=== PATIENT | female | born 1935 | race Caucasian/White ===

== ENCOUNTER 2022-02-03 09:22 | Emergency (ER) | payer MEDICARE, MEDICAID, SELFPAY ==
[2022-02-03 09:35] VITALS: BP 132/66; BP 157/57; PULSE 57; PULSE 62; RESP 18; TEMP 36.4; O2SAT 95; O2SAT 97; BMI 25.7
[2022-02-03 10:57] VITALS: BP 139/52; PULSE 53; RESP 12; O2SAT 95
--- NOTE | 2022-02-03 11:14 | PC.NURSE ---
RN to RN with yael at [facility]. Pt has been ambulatory, urinating w/o diff on toilet. no complaints. No prolapse noted by providers when patient spine in bed. [facility] aware that ED is unable to fit pt with new pessarie.
--- NOTE | 2022-02-03 11:27 | ED.FEMALEGU ---
HPI - Female Genitourinary General Chief complaint: Urogenital-Female Stated complaint: VAGINAL PROLAPSE PER SNF Time Seen by Provider: 02/03/22 11:01 Source: EMS Mode of arrival: EMS Limitations: altered mental status History of Present Illness HPI Narrative: 86-year-old female coming from a group home with a past medical history of dementia here with reports of vaginal prolapse noted by nursing staff today. Per report from nursing the patient has a history of this and had a pessary in place. History of present illness, review of systems is limited due to baseline mental status Related Data Allergies Allergy/AdvReac Type Severity Reaction Status Date / Time celecoxib [From Celebrex] Allergy Unknown Verified 02/03/22 09:34 ciprofloxacin [From Cipro] Allergy Unknown Verified 02/03/22 09:34 rosuvastatin [From Crestor] Allergy Unknown Verified 02/03/22 09:34 Review of Systems Review of Systems: Yes Unobtainable due to mental status Neurologic: Reports confusion Psychiatric: Psychiatric: Reports confusion PMFSH Past Medical History Attestation statement: The following information was validated with the patient. Source: old records reviewed and nursing notes reviewed Social History Social History Alcohol intake: never Patient Tobacco Use Status: Never used Tobacco Use of substances other than those prescribed or required for medical reasons: No Physical Exam Vital Signs: Vital Signs: Last Vital Signs Temp 97.6 F 02/03/22 09:35 Pulse 53 02/03/22 10:57 Resp 12 02/03/22 10:57 BP 139/52 L 02/03/22 10:57 Pulse Ox 95 02/03/22 10:57 BMI result Body Mass Index 25.7 Const: General: comfortable, alert and confusion Orientation/consciousness: confusion Limitations: no limitations HEENT: Head: Yes normal to inspection Ears: hearing grossly normal bilaterally General nose exam: Normal external nose present Face and sinus: Yes normal facial exam Mouth: Normal oral and palatal mucosa present Throat: Yes posterior oropharynx normal Eyes: General: appearance normal, both eyes and all related structures Pupils: Equal, round and reactive pupils present Neck: Neck: Yes normal visual inspection Chest: Chest palpation & inspection: normal inspection of the chest Resp: Effort & Inspection: normal respiratory effort Auscultation: clear to auscultation bilaterally Cardio: Rate: regular rate Rhythm: regular rhythm Peripheral pulses: Peripheral pulses 2+ throughout GI: Inspection: Yes normal to inspection Palpation (GI): Soft to palpation and nontender Auscultation: normal bowel sounds : External Female Exam: normal external appearance and normal appearance of the urethra Back/Spine/Pelvis: Thoracic/Lumbar Spine: thoracic and lumbar spine normal to inspection Skin: General skin exam: no rashes or lesions noted Neuro: General: moves all extremities, normal sensation to monofilament and confusion Cranial nerves: Yes Equal, round and reactive pupils present Extrem: General: Yes normal to inspection Course Course Course Narrative: 86-year-old female here with reports of vaginal prolapse noted at the group home. Patient has underlying history of dementia as on unable to obtain any history of present illness, ROS and limited PE. Per report of Nursing the patient had a pessary in place. On exam the patient has an external normal appearance of the vagina. Nursing tells me with standing they noticed ?vaginal prolapse. Pessary not with patient. Patient has no complaints, feels well, no pain, voiding normally. Will discharge back to [facility] and consult for urogyn can be done outpatient. MDM - Female Genitourinary Medical Records Attestation: I reviewed the patient's medical records. Lab Data Attestation: I reviewed the patient's lab results. Discharge Plan Discharge Clinical Impression: Vaginal wall prolapse
== END 2022-02-03 13:45 | disposition skilled nursing facility (03) ==
PROVIDERS: Emergency Provider Emergency Medicine Emergency Medical Services; PCP Family Medicine
DX: N81.10 Cystocele, unspecified (principal); F03.90 Unspecified dementia, unspecified severity, without behavioral disturbance, psychotic disturbance, mood disturbance, and anxiety
CPT/HCPCS: 99282; 99284

== ENCOUNTER 2022-02-05 19:18 | Emergency (ER) | payer MEDICARE, MEDICAID, SELFPAY ==
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
[2022-02-05 19:27] VITALS: BP 122/62; BP 165/71; PULSE 64; PULSE 70; RESP 18; TEMP 36.8; O2SAT 95; O2SAT 97
--- NOTE | 2022-02-05 19:46 | PC.NURSE ---
Made two attempts to call nursing facility to determine PT's tetanus vaccination status with no success. No one answered the phone at the facility on first or second floor.
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
[2022-02-05] MEDS: Diphth,Pertus(ACell),Tet Adult 0.5 ML SYRINGE IM (21:28)
[2022-02-05] MEDS: Lidocaine HCl 1 % MPF 5 ML VIAL SUBCUT (21:29)
[2022-02-05 21:57] VITALS: BP 151/55; PULSE 72; RESP 16; TEMP 36.8; O2SAT 98
[2022-02-05] MEDS: Amoxicillin/Potassium Clav 875 MG TABLET PO (22:36)
--- NOTE | 2022-02-06 00:34 | PC.NURSE ---
EMS at bedside for trransport back to SNF.
== END 2022-02-06 00:36 | disposition skilled nursing facility (03) ==
PROVIDERS: Emergency Provider Internal Medicine
DX: S01.512A Laceration without foreign body of oral cavity, initial encounter (principal); S01.81XA Laceration without foreign body of other part of head, initial encounter; Y04.2XXA Assault by strike against or bumped into by another person, initial encounter; Y93.89 Activity, other specified; Y92.129 Unspecified place in nursing home as the place of occurrence of the external cause; Y99.9 Unspecified external cause status
CPT/HCPCS: 12052; 70450; 70486; 72125; 90471; 90715; 99283; 99284

== ENCOUNTER 2022-03-21 14:13 | Outpatient (REF) | payer MEDICARE, MEDICAID, SELFPAY ==
--- NOTE | ~2022-03-21 | US_ITS ---
EXAMINATION: US THYROID CLINICAL INFORMATION: Multinodular goiter. COMPARISON: None TECHNIQUE: Linear transducer grayscale and color Doppler examination with attention to the region of the thyroid. FINDINGS: SIZE: Measurements of the thyroid lobes and nodules are given in sagittal, anteroposterior and transverse dimensions respectively. Right Thyroid Lobe: 4.5 x 1.8 x 1.6 cm, volume 6.8 mL. Parenchyma: The gland echotexture is heterogeneous. Thyroid vascularity is normal. Left Thyroid Lobe: 5.6 x 3.4 x 2.2 cm, volume 21.9 mL. Parenchyma: The gland echotexture is heterogeneous. Thyroid vascularity is normal. Isthmus: 0.9 cm in maximum AP dimension. Estimated total number of nodules greater than or equal to 1 cm: 4. [employer] nodules are described as follows: 1. Location: Lower left isthmus. Size: 1.9 x 0.8 x 1.5 cm, volume 1.1 mL. Nodule characteristics: Composition: Solid (2). Echogenicity: Hypoechoic (2). Shape: Not taller than wide (0). Margins: Ill-defined (0). Echogenic Foci: None (0). ACR TI-RADS total points: 4 ACR TI-RADS category: 4 2. Location: Left lower isthmus. Size: 1.1 x 1.3 x 1.8 cm, volume 1.31 mL. Nodule characteristics: Composition: Solid (2). Echogenicity: Isoechoic (1). Shape: Not taller than wide (0). Margins: Smooth (0). Echogenic Foci: None (0). ACR TI-RADS total points: 3 ACR TI-RADS category: 3 3. Location: Left lower pole. Size: 3.6 x 2.5 x 2.3 cm, volume 11.0 mL. Nodule characteristics: Composition: Solid (2). Echogenicity: Hypoechoic (2). Shape: Not taller than wide (0). Margins: Extrathyroidal extension (3). Echogenic Foci: None (0). ACR TI-RADS total points: 7 ACR TI-RADS category: 5 4. Location: Right lower pole. Size: 1.7 x 1.6 x 0.9 cm, volume 1.25 mL. Nodule characteristics: Composition: Solid (2). Echogenicity: Isoechoic (1). Shape: Taller than wide (3). Margins: Irregular (2). Echogenic Foci: None (0). ACR TI-RADS total points: 8 ACR TI-RADS category: 5 NODES: No lymphadenopathy is seen in the tissue surrounding the thyroid gland. US/US thyroid IMPRESSION: Heterogeneous slightly enlarged thyroid lobes. The left lobe is significantly enlarged. There is a heterogeneous nodule suspicious in the lower pole left lobe and lower pole right lobe. By ACR TI-RADS reference these nodules should be biopsied. ACR TI-RADS RECOMMENDATION REFERENCE: Ultrasound-guided fine-needle aspiration, followup ultrasound, no further follow up. * TR1 (0 point) and TR 2 (2 points): No FNA or follow up * TR3 (3 points): FNA if more than or equal to 2.5 cm in maximum dimension, followup ultrasound in 1, 3 and 5 years if 1.5 to 2.4 cm in maximum dimension. * TR4 (4-6 points): FNA if more than or equal to 1.5 cm in maximum dimension, followup ultrasound in 1, 2, 3 and 5 years if 1 to 1.4 cm in maximum dimension. * TR5 (more than or equal to 7 points): FNA if more than or equal to 1 cm in maximum dimension, followup ultrasound every year for 5 years if 0.5 to 0.9 cm in maximum dimension. * TR3, TR4 or TR5 nodules that are below the size threshold for follow up receive no follow up.
== END 2022-03-21 14:14 | disposition home or self-care (01) ==
LOC: HO.US 14:13
PROVIDERS: Visit Provider Family Medicine
DX: E04.9 Nontoxic goiter, unspecified (principal)
CPT/HCPCS: 76536

== ENCOUNTER 2022-04-14 10:01 | Emergency (ER) | payer MEDICARE, MEDICAID, SELFPAY ==
--- NOTE | ~2022-04-14 | CT_ITS ---
EXAMINATION: CT CHEST WITHOUT CONTRAST CLINICAL INFORMATION: Fall with left-sided pain COMPARISON: None TECHNIQUE: Multidetector volumetric CT imaging of the chest was done. Axial MIP volume rendering provided. Sagittal and coronal reformatted images were obtained. This CT examination was performed using dose optimization techniques as appropriate, variously including the following: *Automated exposure control *Adjustment of mA and/or kV according to patient size (this includes techniques or standardized protocols for targeted exams where dose is matched to indication/reason for exam; i.e. extremities or head) *Use of iterative reconstruction technique DLP: 214 mGy-cm FINDINGS: LUNGS: Bibasilar atelectasis is seen. There is marked bronchiectasis present in the right upper lobe medially with crowding of dilated thick-walled bronchi. There are scattered areas of tree-in-bud formation indicative of inflammatory/airway disease. No suspicious focal masses are seen scattered calcified granulomas are seen bilaterally.. Some areas of bronchial plugging are seen (for example right middle lobe 4:247). MEDIASTINUM: Heart size normal. Main pulmonary artery is dilated at 4.2 cm suggesting pulmonary hypertension. Calcific atherosclerotic changes present in the aorta and coronary arteries. No mediastinal or hilar lymphadenopathy is detected PLEURA: There is no pleural effusion. No pleural mass or thickening. AXILLA: No lymphadenopathy. UPPER ABDOMEN: Unremarkable. OSSEOUS STRUCTURES: Mild degenerative changes are present spine most marked at L1-L2. There is a hemangioma present on the left side of the T7 vertebral body as well as on the right side of the T10 vertebral body. CT/CT chest wo con IMPRESSION: * No evidence of a traumatic injury. * Some chronic findings are present in the lungs including atelectasis, tree-in-bud formation and bronchiectasis. * Main pulmonary artery is dilated suggesting pulmonary hypertension Fleischner guidelines were followed.
--- NOTE | ~2022-04-14 | CT_ITS ---
EXAMINATION: CT HEAD WITHOUT CONTRAST CLINICAL INFORMATION: Fall. Dizziness. COMPARISON: Previous head CT January 2022 TECHNIQUE: Contiguous axial imaging was performed from the skull base to vertex without intravenous administration of contrast. This CT examination was performed using dose optimization techniques as appropriate, variously including the following: *Automated exposure control *Adjustment of mA and/or kV according to patient size (this includes techniques or standardized protocols for targeted exams where dose is matched to indication/reason for exam; i.e. extremities or head) *Use of iterative reconstruction technique DLP: 595 mGy-cm FINDINGS: There is no evidence of an extra-axial collection. There is no evidence of intra-axial or extra-axial hemorrhage. The ventricles and extra-axial CSF spaces are prominent suggestive of generalized atrophy. There is nonspecific periventricular white matter disease. 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 There is an old infarct or encephalomalacia in the left temporal lobe that appears unchanged. No mass, mass effect or acute infarct is seen. No skull fracture is seen. There is soft tissue swelling over the left frontal bone laterally left orbit. CT/CT head/brain wo con IMPRESSION: No acute intracranial findings. Soft tissue swelling over the left frontal bone lateral orbit suggestive of hematoma. Otherwise no change from January 2022 exam.
--- NOTE | ~2022-04-14 | XR_ITS ---
EXAMINATION: XR KNEE, LEFT CLINICAL INFORMATION: Pain after fall COMPARISON: None TECHNIQUE: Four views of the left knee. FINDINGS: Degenerative changes are seen with narrowing of the medial compartment and lateral femoral condyle and tibial plateau osteophytes. No chondrocalcinosis. No significant joint effusion. No acute fractures are seen. XR/XR knee LT 4V IMPRESSION: Negative changes anomaly involving the medial compartment. No evidence of an acute injury.
--- NOTE | ~2022-04-14 | CT_ITS ---
EXAMINATION: CT FACIAL BONES WITHOUT CONTRAST CLINICAL INFORMATION: Fall. Pain. COMPARISON: Previous CT January 2022. TECHNIQUE: Axial images through the facial bones without contrast. This CT examination was performed using dose optimization techniques as appropriate, variously including the following: *Automated exposure control *Adjustment of mA and/or kV according to patient size (this includes techniques or standardized protocols for targeted exams where dose is matched to indication/reason for exam; i.e. extremities or head) *Use of iterative reconstruction technique DLP: 272 mGy-cm FINDINGS: There is a comminuted nondisplaced fracture of the ramus and angle of the left mandible. There is mild widening or subluxation of the left temporomandibular joint that appears unchanged. There is overlying soft tissue swelling. There is a nondisplaced fracture through the ramus of the right mandible. This appears unchanged from recent exam January 2022. The right temporomandibular joint is normal. No other fracture or dislocation is seen. There is periodontal disease that appears unchanged. There is soft tissue swelling over the left lateral orbit and frontal bone. The orbits are normal appearing. The mastoid air cells, middle ears are clear. There are degenerative changes at the left temporomandibular joint. There is membranous soft tissue thickening seen in the right maxillary sinus. Paranasal sinuses are otherwise clear. CT/CT facial bones wo con IMPRESSION: Bilateral mandible fractures and mild widening subluxation of the left temporomandibular joint unchanged from January 2022 exam. New high attenuation soft tissue swelling over the lateral left orbit and frontal bone suggestive of hematoma.
--- NOTE | ~2022-04-14 | CT_ITS ---
EXAMINATION: CT CERVICAL SPINE WITHOUT CONTRAST CLINICAL INFORMATION: Fall. Pain. COMPARISON: Previous CT January 2022 TECHNIQUE: Axial images through the cervical spine without contrast. Sagittal and coronal reconstructions on the technologist workstation were performed. This CT examination was performed using dose optimization techniques as appropriate, variously including the following: *Automated exposure control *Adjustment of mA and/or kV according to patient size (this includes techniques or standardized protocols for targeted exams where dose is matched to indication/reason for exam; i.e. extremities or head) *Use of iterative reconstruction technique DLP: 272 mGy-cm FINDINGS: There is mild 2 mm anterior subluxation of C3 with respect to C4. Bone alignment is otherwise normal. No fracture or dislocation is seen. There is multilevel degenerative spondylosis and degenerative disc disease from C4-C5 to C6-C7. There is bilateral multilevel facet arthritis. There are degenerative changes at the C1 dens articulation. There are multiple small lucencies in the cervical spine, question related to osteopenia. Prevertebral soft tissues are normal. There may be a left thyroid nodule. Visualized lung apices are clear. CT/CT cervical spine wo con IMPRESSION: Degenerative changes. No fracture or dislocation seen. Fleischner guidelines were followed.
[2022-04-14 10:18] VITALS: BP 126/54; PULSE 55; RESP 18; TEMP 36.9; O2SAT 93
[2022-04-14 10:22] VITALS: BP 124/58; BP 126/54; PULSE 53; PULSE 62; RESP 22; TEMP 36.9; O2SAT 94; O2SAT 96; BMI 22.0
--- NOTE | 2022-04-14 10:41 | ECG_ITS ---
Test Reason : fall Blood Pressure : / mmHG Vent. Rate : 053 BPM Atrial Rate : 053 BPM P-R Int : 158 ms QRS Dur : 092 ms QT Int : 442 ms P-R-T Axes : 067 062 064 degrees QTc Int : 414 ms Sinus bradycardia Otherwise normal ECG No previous ECGs available Referred By: Rhonda Moore Electronically Signed By:Stephen Hubbard
--- NOTE | 2022-04-14 10:57 | ED.GENADULT ---
HPI - General Adult General Chief complaint: General Medical Stated complaint: MECH FALL DAYS AGO,HIT HEAD,+[facility]INNERS FROM SNF Time Seen by Provider: 04/14/22 10:56 Source: patient and family (Daughter) Mode of arrival: EMS History of Present Illness HPI narrative: 87-year-old female who is brought in by EMS from [facility] with baseline dementia with complaints of 2-3 days of dizziness/headache. As per the daughter patient fell approximately 2 weeks ago and is currently on anticoagulation and then 2-3 days ago she sustained of no other fall although the patient states that she fell this morning. Patient does report that the left side of her head hurts as well as her left knee but otherwise denies any pain in her chest abdomen or pelvis. Related Data Previous Rx's Medication Instructions Recorded amoxicillin 875 mg-potassium 1 tab PO BID 7 days #14 tabs 02/05/22 clavulanate 125 mg tablet chlorhexidine gluconate 4 % 1 appl topical QID #473 mL 02/05/22 topical liquid Allergies Allergy/AdvReac Type Severity Reaction Status Date / Time celecoxib [From Celebrex] Allergy Unknown Verified 02/03/22 09:34 ciprofloxacin [From Cipro] Allergy Unknown Verified 02/03/22 09:34 rosuvastatin [From Crestor] Allergy Unknown Verified 02/03/22 09:34 Review of Systems Review of Systems: Pertinent positives and negatives as stated in HPI 10 point review of systems is otherwise negative. PMFSH Past Medical History Source: nursing notes reviewed Social History Social History Alcohol intake: never Patient Tobacco Use Status: Never used Tobacco Use of substances other than those prescribed or required for medical reasons: No Advance Directives: Yes Advance Directives on File: Yes Advance Directives Date on File: 02/03/22 Physical Exam ED Vital Signs: Vital Signs - 24 hr 04/14/22 10:18 04/14/22 10:22 04/14/22 14:38 Temperature 98.4 F 98.4 F 99.0 F Pulse Rate 55 53 51 Respiratory Rate 18 22 H 14 Blood Pressure 126/54 L 126/54 L 132/52 L Pulse Oximetry 93 94 94 Oxygen Delivery Method Room Air Room Air Room Air BMI result Body Mass Index 22.0 VITAL SIGNS: Reviewed. GENERAL: Well developed, well nourished, in no acute distress. HEAD: Normocephalic/contusion/hematoma to left temp oral, evidence old ecchymosis around left orbit as well as right orbit EYES: PERRLA, EOMI EARS: Ext canals without abnormality, TMs non-bulging NOSE: Nares patent bilateral, no deformity NECK: No midline cervical spine tenderness, no step-offs noted OROPHARYNX: no oral lesions noted, posterior pharynx clear LUNGS: Normal breath sounds. No adventitious sounds or accessory muscle use. SpO2<93>;CHEST WALL: No deformity, no crepitus, no pain on palpation CARDIOVASCULAR: Regular rate and rhythm without noted murmurs, no JVD or lower extremity edema. ABDOMEN: Soft, non-tender, non-distended with bowel sounds. PELVIS: Stable, nontender MUSCULOSKELETAL: No tenderness, deformities, or effusions noted on gross inspection; LEFT KNEE: Pain and crepitus noted although no swelling. EXTREMITIES: No cyanosis, clubbing or edema. SKIN: Inspection of the skin reveals no rashes, ecchymosis as described above NEUROLOGIC: Alert and oriented x 2. Strength and sensation to light touch were grossly intact x 4. Course Course Course Narrative: 87-year-old female with history and clinical presentation consistent with multiple falls and noted mold ecchymosis secondary to these. Will obtain imaging as well as lab work to ensure no evidence of infection, anemia, arrhythmia is underlying the falls and also rule out the possibility intracranial bleeding as she is on anticoagulation. Review of all investigations without significant changes. Patient has already been evaluated by [facility] as per the daughter and on review of all CT imaging there are no acute findings and in fact the following finding is made note of once again. Bilateral mandible fractures and mild widening subluxation of the left temporomandibular joint unchanged from January 2022 exam. New high attenuation soft tissue swelling over the lateral left orbit and frontal bone suggestive of hematoma. Patient is otherwise hemodynamically stable for discharge to home and should follow up with primary care doctor. Medical Decision Making Lab Data Result diagrams: 04/14/22 11:11 04/14/22 11:11 Labs: Lab Results 04/14/22 04/14/22 04/14/22 Range/Units 11:11 11:11 11:11 WBC 9.3 (4.8-10.8) X10*3/uL RBC 3.47 L (4.20-5.50) X10*6/uL Hgb 10.3 L (12.0-16.0) g/dl Hct 34.2 L (37.0-47.0) % MCV 98.6 H (80.0-98.0) fL MCH 29.7 (27.0-33.0) pg MCHC 30.1 L (31.0-35.0) g/dl RDW 14.4 (11.0-16.0) % Plt Count 357 (160-400) X10*3/uL MPV 8.7 L (9.4-12.3) fL Immature Gran % (Auto) 0.3 (0.0-0.4) % Neut % (Auto) 81.4 H (45-73) % Lymph % (Auto) 9.9 L (20-40) % [place] % (Auto) 7.6 (2-11) % Eos % (Auto) 0.5 (0-4) % Baso % (Auto) 0.3 (0-2) % Lymph # (Auto) 0.9 L (1.2-4.9) X10*3/uL [place] # (Auto) 0.7 (0.1-1.2) X10*3/uL Eos # (Auto) 0.1 (0.0-0.4) X10*3/uL Baso # (Auto) 0.0 (0.0-0.2) X10*3/uL Abs Immat Gran (auto) 0.03 (0.00-0.03) X10*3/uL Absolute Neuts (auto) 7.6 (2.0-8.3) x10*3/uL Absolute Nucleated RBC 0.000 (0.0-0.012) X10*3/uL Nucleated RBC % (auto) 0.0 (0.0-0.2) /100WBC PT 14.3 H (9.9-13.0) SEC INR 1.3 H (0.9-1.1) Sodium 142 (135-145) mmol/L Potassium 4.1 (3.3-5.1) mmol/L Chloride 105 (96-108) mmol/L Carbon Dioxide 31 H (22-29) mmol/L Anion Gap 10 L (12-20) BUN 17 H (9-16) mg/dL Creatinine 0.88 (0.5-1.4) mg/dL Estim Creat Clear Calc 42.2 Estimated GFR > 60 Random Glucose 97 (60-115) mg/dL Calcium 8.6 (8.4-10.2) mg/dL Total Bilirubin 0.3 (0.0-1.0) mg/dL AST 14 (5-31) U/L ALT 8 (0-31) U/L Alkaline Phosphatase 79 (39-117) U/L Total Protein 6.1 L (6.5-8.0) g/dL Albumin 3.3 L (3.5-5.0) g/dL Urine Color Urine Appearance Urine pH (5.0-8.0) Ur Specific [place] (1.005-1.025) Urine Protein (NEG-TRACE) MG/DL Urine Glucose (UA) (NEG) MG/DL Urine Ketones (NEG) MG/DL Urine Blood (NEG) Urine Nitrite (NEG) Ur Leukocyte Esterase (NEG) 04/14/22 Range/Units 15:42 WBC (4.8-10.8) X10*3/uL RBC (4.20-5.50) X10*6/uL Hgb (12.0-16.0) g/dl Hct (37.0-47.0) % MCV (80.0-98.0) fL MCH (27.0-33.0) pg MCHC (31.0-35.0) g/dl RDW (11.0-16.0) % Plt Count (160-400) X10*3/uL MPV (9.4-12.3) fL Immature Gran % (Auto) (0.0-0.4) % Neut % (Auto) (45-73) % Lymph % (Auto) (20-40) % [place] % (Auto) (2-11) % Eos % (Auto) (0-4) % Baso % (Auto) (0-2) % Lymph # (Auto) (1.2-4.9) X10*3/uL [place] # (Auto) (0.1-1.2) X10*3/uL Eos # (Auto) (0.0-0.4) X10*3/uL Baso # (Auto) (0.0-0.2) X10*3/uL Abs Immat Gran (auto) (0.00-0.03) X10*3/uL Absolute Neuts (auto) (2.0-8.3) x10*3/uL Absolute Nucleated RBC (0.0-0.012) X10*3/uL Nucleated RBC % (auto) (0.0-0.2) /100WBC PT (9.9-13.0) SEC INR (0.9-1.1) Sodium (135-145) mmol/L Potassium (3.3-5.1) mmol/L Chloride (96-108) mmol/L Carbon Dioxide (22-29) mmol/L Anion Gap (12-20) BUN (9-16) mg/dL Creatinine (0.5-1.4) mg/dL Estim Creat Clear Calc Estimated GFR Random Glucose (60-115) mg/dL Calcium (8.4-10.2) mg/dL Total Bilirubin (0.0-1.0) mg/dL AST (5-31) U/L ALT (0-31) U/L Alkaline Phosphatase (39-117) U/L Total Protein (6.5-8.0) g/dL Albumin (3.5-5.0) g/dL Urine Color YELLOW Urine Appearance HAZY Urine pH 5.5 (5.0-8.0) Ur Specific [place] >= 1.030 H (1.005-1.025) Urine Protein NEG (NEG-TRACE) MG/DL Urine Glucose (UA) NEG (NEG) MG/DL Urine Ketones NEG (NEG) MG/DL Urine Blood NEG (NEG) Urine Nitrite NEG (NEG) Ur Leukocyte Esterase NEG (NEG) ECG Data Attestation: I personally reviewed and interpreted this ECG as follows: Prior ECG tracings: not available for review Interpretation: Sinus bradycardia, HR-53, no STEMI, [place]/QRS/QTC is within normal limits. Discharge Plan Discharge Clinical Impression: Fall, Hematoma of scalp, Fracture of jaw Patient Disposition: [facility] Instructions: Jaw Fracture in Adults (ED), Fall Prevention for Older Adults (ED), Scalp Contusion in Adults (ED) Additional Instructions: 1. Resume all home medications as prescribed. 2. Follow-up with the primary care provider today for an appointment for re-evaluation. 3. Patient should follow-up for this bilateral mandibular fracture and noted mild widening subluxation of the left temporal mandibular joint which is unchanged from January 2022. Prescriptions: No Action amoxicillin-pot clavulanate 875-125 mg tablet 1 tab PO BID 7 Days Qty: 14 0RF chlorhexidine gluconate 4 % liquid 1 appl topical QID Qty: 473 0RF Rx Instructions: Use after meals Referrals: Russ Moore MD [Primary Care Provider] -
[2022-04-14 11:17] LABS: Basophils Percent Auto 0.3 % (0-2); Eosinophils Absolute Auto 0.1 X10*3/uL (0.0-0.4); Eosinophils Percent Auto 0.5 % (0-4); Hematocrit 34.2 % (37.0-47.0); Hemoglobin 10.3 g/dl (12.0-16.0); Imm Gran Abs Auto 0.03 X10*3/uL (0.00-0.03); Imm Gran Pct Auto 0.3 % (0.0-0.4); Lymphocytes Absolute Auto 0.9 X10*3/uL (1.2-4.9); Lymphocytes Percent Auto 9.9 % (20-40); MANUAL DIFF FLAG NO; Mean Corpuscular HGB Conc 30.1 g/dl (31.0-35.0); Mean Corpuscular Hemoglobin 29.7 pg (27.0-33.0); Mean Corpuscular Volume 98.6 fL (80.0-98.0); Mean Platelet Volume 8.7 fL (9.4-12.3); Monocytes Absolute Auto 0.7 X10*3/uL (0.1-1.2); Monocytes Percent Auto 7.6 % (2-11); Neutrophils Absolute Auto 7.6 x10*3/uL (2.0-8.3); Neutrophils Percent Auto 81.4 % (45-73); Platelet Count 357 X10*3/uL (160-400); Red Blood Count 3.47 X10*6/uL (4.20-5.50); Red Cell Distribution Width 14.4 % (11.0-16.0); White Blood Count 9.3 X10*3/uL (4.8-10.8)
--- NOTE | 2022-04-14 11:18 | PC.NURSE ---
pt's daughter rosa toscano ([phone]) called [facility] [place] and was updated on pt status. pt's daughter states that pt fell about 2 wks ago this past monday and was taken to [facility] for eval/tx. pt per daughter had also c/o l eye haziness and was seen by an eye md, pt also has been c/o increase insominia. md aware.
[2022-04-14 11:28] LABS: INTERNATIONAL NORM RATIO 1.3 (0.9-1.1); Prothrombin Time 14.3 SEC (9.9-13.0)
[2022-04-14 11:36] LABS: Alanine Aminotransferase 8 U/L (0-31); Albumin Level 3.3 g/dL (3.5-5.0); Alkaline Phosphatase 79 U/L (39-117); Anion Gap 10 (12-20); Aspartate Amino Transferase 14 U/L (5-31); Bilirubin Total 0.3 mg/dL (0.0-1.0); Blood Urea Nitrogen 17 mg/dL (9-16); Calcium 8.6 mg/dL (8.4-10.2); Carbon Dioxide 31 mmol/L (22-29); Chloride 105 mmol/L (96-108); Creatinine Clr Calc Pharmacy 42.2; Estimated Glomerular Filt Rate > 60; Glucose Random 97 mg/dL (60-115); Potassium 4.1 mmol/L (3.3-5.1); Sodium 142 mmol/L (135-145); Total Protein 6.1 g/dL (6.5-8.0)
[2022-04-14 14:38] VITALS: BP 132/52; PULSE 51; RESP 14; TEMP 37.2; O2SAT 94
--- NOTE | 2022-04-14 14:54 | PC.NURSE ---
Patient has increased confusion and becoming more difficult to redirect. Spoke to daughter on phone who says patient is confused at baseline. MD aware. Awaiting CT scan results.
[2022-04-14 15:52] LABS: Appearance Urine HAZY; Color Urine YELLOW; Glucose Urine UA NEG (NEG); Leukocyte Esterase Urine NEG (NEG); Nitrite Urine NEG (NEG); PH 5.5 (5.0-8.0); Specific Gravity - Urine >= 1.030 (1.005-1.025); Urine Blood NEG (NEG); Urine Ketones NEG (NEG); Urine Protein NEG (NEG-TRACE)
--- NOTE | 2022-04-14 16:32 | PC.NURSE ---
SPOKE WITH DAUGHTER- SHE WILL BE ABLE TO PICK HER MOTHER UP AT 1800 TO TRANSPORT HER BACK TO [facility]
== END 2022-04-14 17:46 | disposition skilled nursing facility (03) ==
PROVIDERS: Emergency Provider Student in an Organized Health Care Education/Training Program; PCP Family Medicine
DX: S00.83XA Contusion of other part of head, initial encounter (principal); S02.642A Fracture of ramus of left mandible, initial encounter for closed fracture; S02.641A Fracture of ramus of right mandible, initial encounter for closed fracture; W19.XXXA Unspecified fall, initial encounter; R42 Dizziness and giddiness; R51.9 Headache, unspecified; Z79.01 Long term (current) use of anticoagulants; Z91.81 History of falling; Y93.9 Activity, unspecified; Y92.129 Unspecified place in nursing home as the place of occurrence of the external cause; Y99.9 Unspecified external cause status
CPT/HCPCS: 36415; 70450; 70486; 71250; 72125; 73564; 80053; 81003; 85025; 85610; 93005; 99284

== ENCOUNTER 2022-04-17 06:35 | Emergency (ER) | payer MEDICARE, MEDICAID, SELFPAY ==
--- NOTE | ~2022-04-17 | CT_ITS ---
EXAMINATION: CT CHEST, ABDOMEN AND PELVIS WITHOUT CONTRAST CLINICAL INFORMATION: Fall. Facial hematoma. Poor historian. COMPARISON: Chest CT dated 04/14/2022. TECHNIQUE: Contiguous axial thin section helical images of the chest, abdomen and pelvis were performed without IV contrast. The data set was reformatted in the coronal and sagittal planes and reviewed on an independent workstation. This CT examination was performed using dose optimization techniques as appropriate, variously including the following: *Automated exposure control *Adjustment of mA and/or kV according to patient size (this includes techniques or standardized protocols for targeted exams where dose is matched to indication/reason for exam; i.e. extremities or head) *Use of iterative reconstruction technique DLP: 533 mGy-cm FINDINGS: LUNGS: Posterior right upper lobe bronchiectasis with vascular crowding appears unchanged. Associated volume loss is again noted. Right middle lobe bronchiectasis as well as additional scattered areas of right-sided bronchiectasis are noted. Findings are similar when compared to the prior examination. No new pulmonary nodule, mass, or airspace consolidation. PLEURA: No pleural effusion or pneumothorax. No pleural mass or thickening. MEDIASTINUM: No cardiomegaly. No significant pericardial effusion. No thoracic aortic dilatation. Redemonstration of main pulmonary artery dilatation, unchanged. Findings can be seen in the setting of pulmonary hypertension. Stable subcentimeter superior mediastinal lymph nodes. Redemonstration of a heterogeneously enlarged left thyroid lobe. CHEST WALL/AXILLA: No lymphadenopathy. LIVER, GALLBLADDER, AND BILIARY TREE: Normal size, shape, and attenuation. No focal hepatic lesion. No intra or extrahepatic biliary ductal dilatation. The gallbladder is mildly distended with tiny layering gallstones. No wall thickening or inflammatory change. PANCREAS: Unremarkable. SPLEEN: Redemonstration of prominent splenic vascular calcifications. No parenchymal lesion. ADRENAL GLANDS: Unremarkable. KIDNEYS AND URETERS: Normal size, shape, and attenuation. No hydronephrosis, hydroureter, or calculi. Stable hyperdense subcentimeter right renal cyst. Stable simple left renal cyst. No followup recommended. No perinephric stranding. BLADDER: Partially obscured by metallic artifact. Grossly unremarkable. GASTROINTESTINAL TRACT: Prominent diverticulosis without evidence of acute diverticulitis. Mild stool burden. No small or large bowel obstruction. The appendix is unremarkable. PERITONEAL CAVITY: No intra-abdominal free air, free fluid, mass, or organized fluid collection. ABDOMINAL WALL: No significant abdominal wall hernia. LYMPH NODES: No significant lymphadenopathy. VASCULAR: Focal prominence of the infrarenal abdominal aorta measuring up to 2.4 cm in greatest dimension. No followup recommended. Scattered atherosclerotic calcifications. The IVC is unremarkable. PELVIC VISCERA: Support device noted within the pelvis. OSSEOUS STRUCTURES: S-shaped scoliotic curvature of the lumbar spine with prominent multilevel degenerative disc disease. No concerning lytic or blastic osseous lesion. Left hip arthroplasty without evidence of complication. CT/CT abdomen pelvis wo con IMPRESSION: 1. No evidence of acute osseous or visceral injury. 2. Redemonstration of pulmonary bronchiectasis without new airspace consolidation. 3. Prominence of the main pulmonary artery is unchanged which can be seen in the setting of pulmonary hypertension. 4. Mild gallbladder distention with cholelithiasis. No CT evidence of acute cholecystitis. 5. No intra-abdominal mass, lymphadenopathy, or ascites.
--- NOTE | ~2022-04-17 | CT_ITS ---
EXAMINATION: CT HEAD WITHOUT CONTRAST CT CERVICAL SPINE WITHOUT CONTRAST CT FACIAL BONES WITHOUT CONTRAST CLINICAL INFORMATION: Fall. Hematoma. Poor historian. COMPARISON: Most recent CT head, cervical spine, and facial bones dated 04/14/2022. TECHNIQUE: Contiguous axial imaging was performed from the skull base to vertex without intravenous administration of contrast. Contiguous axial CT images of the cervical spine were obtained without contrast. Contiguous axial CT images of the fascial bones were obtained without contrast. Sagittal and coronal reformats were provided and reviewed. This CT examination was performed using dose optimization techniques as appropriate, variously including the following: *Automated exposure control *Adjustment of mA and/or kV according to patient size (this includes techniques or standardized protocols for targeted exams where dose is matched to indication/reason for exam; i.e. extremities or head) *Use of iterative reconstruction technique DLP: 997 mGy-cm FINDINGS: HEAD: There is no evidence of acute intracranial hemorrhage or territorial infarction. No abnormal mass effect or midline shift is seen. Walker to white matter differentiation is well preserved. No extra-axial fluid collections are identified. Prominence of the ventricles and sulci is redemonstrated consistent with diffuse atrophy. Hypoattenuation of the periventricular white matter is again noted consistent with chronic microvascular ischemic disease. Focal soft tissue hematoma redemonstrated overlying the left frontal calvarium. No calvarial fracture. The mastoid air cells and visualized portions of the paranasal sinuses are well aerated. CERVICAL SPINE: Straightening of the normal cervical lordosis which may be positional or related to muscular spasm. No acute fracture or subluxation. No loss of vertebral body height. Multilevel loss of intervertebral disc height, most prominent at C4 through C7. Prominent multilevel bilateral facet arthropathy. No concerning lytic or blastic osseous lesion. Unremarkable prevertebral soft tissues. No abnormal soft tissue mass or fluid collection. Thyroid again noted to be heterogeneous and enlarged. Visualized lung apices are clear. Multiple bilateral neural foraminal stenosis is unchanged. FACIAL BONES: Redemonstration of a comminuted, mildly displaced left mandibular angle fracture, unchanged when compared to the prior examination. Asymmetric widening of the left temporomandibular joint is redemonstrated with associated osteoarthritis, similar when compared to the prior examination. Nondisplaced fracture versus vascular channel within the right mandible. Correlate for focal tenderness. No new fracture or dislocation. The pterygoid plates are intact. The zygomatic arches are intact. The lamina papyracea are intact. The orbital rims are intact. The paranasal sinuses are well aerated. No air-fluid levels are seen. There is rightward deviation of the nasal septum. The ostiomeatal complexes are clear. The lamina papyracea are intact. The ethmoid roofs are symmetric. The carotid canals are normally covered by bone. There is no maxillary periapical disease. The mastoid air cells and visualized middle ear cavities are well aerated. The orbits are normal. The imaged portions of the brain demonstrate no acute abnormality. CT/CT cervical spine wo con IMPRESSION: HEAD: No acute intracranial hemorrhage or mass effect. Diffuse atrophy and chronic microvascular ischemic disease is unchanged. Focal soft tissue hematoma redemonstrated overlying the left frontal bone. No adjacent fracture. CERVICAL SPINE: No acute fracture or subluxation. Multilevel degenerative disc disease with facet arthropathy and neural foraminal stenosis appears unchanged. FACIAL BONES: Unchanged comminuted and slightly displaced fracture through the left mandibular angle. Redemonstration of a nondisplaced fracture versus vascular channel within the right mandible. No new facial bone fracture.
[2022-04-17 06:37] VITALS: PULSE 64; RESP 18; TEMP 36.8; O2SAT 98; BMI 25.0
[2022-04-17 07:19] VITALS: BP 125/53
[2022-04-17 07:48] VITALS: BP 121/53; PULSE 55; RESP 18; O2SAT 98
--- NOTE | 2022-04-17 08:04 | PC.NURSE ---
large open wound left forehead, bleeding continues despite pressure. on eliquis for unknown reason. oriented to person only. states she tripped on caT, landed on head first. no c spine tenderness. good bed [id number]. no unilar neuro deficits. skin pwd. nsr on monitor. new dsg applied.
--- NOTE | 2022-04-17 08:11 | ED_ITS ---
HPI - General Adult General Chief complaint: General Medical Stated complaint: FALL LAST WEEK,HEMATOMA TO FACE Time Seen by Provider: 04/17/22 08:11 Source: patient and EMS Mode of arrival: EMS Limitations: altered mental status (patient has severe dementia) History of Present Illness HPI narrative: Patient is an 87 year old female presenting to the emergency department today with a hematoma to the left scalp. EMS states that the patient was seen here 2 days ago for a fall and then today, the hematoma on the left side of her forehead exploded and began to bleed. [place] states that the patient did not have another fall and is demented at baseline. EMS states that the patient is still receiving anti-coagulant medications. Related Data Previous Rx's Medication Instructions Recorded amoxicillin 875 mg-potassium 1 tab PO BID 7 days #14 tabs 02/05/22 clavulanate 125 mg tablet chlorhexidine gluconate 4 % 1 appl topical QID #473 mL 02/05/22 topical liquid Allergies Allergy/AdvReac Type Severity Reaction Status Date / Time celecoxib [From Celebrex] Allergy Unknown Verified 02/03/22 09:34 ciprofloxacin [From Cipro] Allergy Unknown Verified 02/03/22 09:34 rosuvastatin [From Crestor] Allergy Unknown Verified 02/03/22 09:34 Review of Systems Review of Systems: Yes Unobtainable due to mental status (patient is severely demented at baseline) Constitutional: Constitutional: Denies fever(s) and Reports frequent falls Eyes: Eyes: Denies eye discharge and Denies eye pain ENT: Denies neck mass, Denies odynophagia, Denies throat swelling and Denies tongue swelling Cardiovascular: Cardiovascular: Denies dyspnea on exertion Respiratory: Respiratory: Denies cough and Denies dyspnea on exertion Gastrointestinal: Gastrointestinal: Denies nausea and Denies odynophagia Genitourinary: Genitourinary: Denies hematuria, Denies urinary frequency, Denies dysuria, Denies urinary incontinence, Denies urinary hesitancy and Denies urinary urgency Musculoskeletal: Musculoskeletal: Reports no additional musculoskeletal complaints, Denies numbness and Denies tingling Integumentary/Breasts: Comments: hematoma to left forehead Neurologic: Reports frequent falls, Denies numbness and Denies tingling Psychiatric: Psychiatric: Reports no additional psychiatric complaints Endocrine: Endocrine: Reports no additional endocrine complaints Hematologic/Lymphatic: Hematologic/Lymphatic: Reports no additional hematologic/lymphatic complaints Allergic/Immunologic: Allergic/Immunologic: Denies throat swelling and Denies tongue swelling PMFSH Past Medical History Attestation statement: The following information was validated with the patient. Source: old records reviewed Social History Social History Alcohol intake: never Patient Tobacco Use Status: Never used Tobacco Use of substances other than those prescribed or required for medical reasons: No Advance Directives: Yes Advance Directives on File: Yes Advance Directives Date on File: 02/08/22 Physical Exam ED Vital Signs: Vital Signs - 24 hr 04/17/22 06:37 04/17/22 07:19 04/17/22 07:48 Temperature 98.2 F Pulse Rate 64 55 Respiratory Rate 18 18 Blood Pressure 125/53 L 121/53 L Pulse Oximetry 98 98 Oxygen Delivery Method Room Air Room Air 04/17/22 12:43 Temperature Pulse Rate 59 Respiratory Rate 17 Blood Pressure 126/44 L Pulse Oximetry 95 Oxygen Delivery Method Room Air BMI result Body Mass Index 25.0 Const General: cooperative, no acute distress, alert and awake Nutritional Appearance: well nourished Limitations: no limitations HENMT Head: Yes normal to inspection and Yes atraumatic Ears: hearing grossly normal bilaterally and external ears normal General nose exam: Normal external nose present, no nasal discharge noted and no epistaxis Face and sinus: Yes normal facial exam, No abrasion and No laceration Mouth: Normal oral and palatal mucosa present, no drooling and no muffled voice Eyes General: appearance normal, both eyes and all related structures Periorbital: periorbital findings normal Eyelids: Yes eyelids normal Conjunctivae: conjunctivae normal Pupils: Equal, round and reactive pupils present EOM: EOMs intact bilaterally Neck Neck: Yes normal visual inspection, Yes full ROM and Yes no lymphadenopathy Chest Chest palpation & inspection: normal inspection of the chest Resp Effort & Inspection: normal respiratory effort and able to speak in complete sentences Auscultation: clear to auscultation bilaterally Cardio Rate: regular rate Rhythm: regular rhythm GI Inspection: Yes normal to inspection Skin Other: unroofed blood blister to the left forehead, oozing blood Neuro General: moves all extremities Cranial nerves: Yes Equal, round and reactive pupils present Gait exam (Neuro): Normal gait present Motor exam (neuro): 5/5 motor strength present throughout Sensory Exam: Normal double simultaneous stimulation for sensation Coordination: [id number] test normal Extrem General: Yes normal to inspection, Yes full ROM and Yes capillary refill normal Psych Appearance: grossly normal Mental Status: mental status grossly normal Affect: normal affect Attitude: cooperative Thought process: Normal thought process present Thought content: Normal thought content present Insight: Good insight present (Psych) Medical Decision Making MDM Narrative Medical decision making narrative: Patient is an 87 year old female presenting to the emergency department today with a hematoma to the left forehead. Patient's physical exam showed an unroofed and slow oozing blood blister to the left forehead in a pleasantly demented elderly female. Patient's blood work was unremarkable. Patient's head, C-Spine, facial, chest, and abdominal/pelvis CT showed no acute process. However, patient's facial CT showed a mandibular fracture that was previously mentioned and [facility] is aware of. I explained my physical exam findings as well as all test results to the patient. I answered all questions asked by the patient. Patient's wound was dressed with surgicell and web roll guaze, bleeding stopped. I stressed the importance of the patient taking her medication as prescribed however, I stressed the importance of holding her anti-coagulation medication for 1 day. I stressed the importance of the patient following up with her primary care provider. I stressed the importance of the patient returning to the emergency department immediately if her symptoms were to worsen or if she were to develop any dizziness, shortness of breath, difficulty breathing, chest pain, blurry vision, loss of vision, nausea, vomiting, abdominal pain, fever, chills, back pain, or any other complaints. Patient verbalized agreement and understanding with this treatment plan and discharge. Due to the patient's extensive confusion, all information was also relayed to [facility] staff and they also verbalized agreement and understanding with this treatment plan and discharge. Differential Diagnosis Differential Diagnosis: Hematoma, blood blister Medical Records Medical records reviewed: Yes I reviewed the patient's medical records. Lab Data Lab results reviewed: Yes I reviewed the patient's lab results. Result diagrams: 04/17/22 11:05 04/17/22 11:05 Labs: Lab Results 04/17/22 04/17/22 04/17/22 Range/Units 11:05 11:05 11:05 WBC 11.0 H (4.8-10.8) X10*3/uL RBC 3.02 L (4.20-5.50) X10*6/uL Hgb 9.1 L (12.0-16.0) g/dl Hct 29.1 L (37.0-47.0) % MCV 96.4 (80.0-98.0) fL MCH 30.1 (27.0-33.0) pg MCHC 31.3 (31.0-35.0) g/dl RDW 14.6 (11.0-16.0) % Plt Count 373 (160-400) X10*3/uL MPV 9.5 (9.4-12.3) fL Immature Gran % (Auto) 0.5 H (0.0-0.4) % Neut % (Auto) 87.5 H (45-73) % Lymph % (Auto) 7.4 L (20-40) % Cataño % (Auto) 4.4 (2-11) % Eos % (Auto) 0.0 (0-4) % Baso % (Auto) 0.2 (0-2) % Lymph # (Auto) 0.8 L (1.2-4.9) X10*3/uL Cataño # (Auto) 0.5 (0.1-1.2) X10*3/uL Eos # (Auto) 0.0 (0.0-0.4) X10*3/uL Baso # (Auto) 0.0 (0.0-0.2) X10*3/uL Abs Immat Gran (auto) 0.05 H (0.00-0.03) X10*3/uL Absolute Neuts (auto) 9.7 H (2.0-8.3) x10*3/uL Absolute Nucleated RBC 0.000 (0.0-0.012) X10*3/uL Nucleated RBC % (auto) 0.0 (0.0-0.2) /100WBC PT 13.5 H (9.9-13.0) SEC INR 1.2 H (0.9-1.1) APTT 32.0 (24.1-38.0) SEC Sodium 142 (135-145) mmol/L Potassium 4.3 (3.3-5.1) mmol/L Chloride 107 (96-108) mmol/L Carbon Dioxide 27 (22-29) mmol/L Anion Gap 12 (12-20) BUN 15 (9-16) mg/dL Creatinine 0.82 (0.5-1.4) mg/dL Estim Creat Clear Calc 43.4 Estimated GFR > 60 Random Glucose 117 H (60-115) mg/dL Calcium 8.5 (8.4-10.2) mg/dL Total Bilirubin 0.5 (0.0-1.0) mg/dL AST 12 (5-31) U/L ALT 9 (0-31) U/L Alkaline Phosphatase 66 (39-117) U/L Total Protein 5.9 L (6.5-8.0) g/dL Albumin 3.3 L (3.5-5.0) g/dL Imaging Data Head, face, C-Spine CT scan: Attestation: I personally reviewed and interpreted this imaging study as follows: My impression: Previously known mandibular fracture, otherwise unremarkable. Radiologist's impression: EXAMINATION: CT HEAD WITHOUT CONTRAST CT CERVICAL SPINE WITHOUT CONTRAST CT FACIAL BONES WITHOUT CONTRAST CLINICAL INFORMATION: Fall. Hematoma. Poor historian.? COMPARISON: Most recent CT head, cervical spine, and facial bones dated 04/14/2022. TECHNIQUE: Contiguous axial imaging was performed from the skull base to vertex without intravenous administration of contrast. Contiguous axial CT images of the cervical spine were obtained without contrast. Contiguous axial CT images of the fascial bones were obtained without contrast. Sagittal and coronal reformats were provided and reviewed. This CT examination was performed using dose optimization techniques as appropriate, variously including the following: *Automated exposure control *Adjustment of mA and/or kV according to patient size (this includes techniques or standardized protocols for targeted exams where dose is matched to indication/reason for exam; i.e. extremities or head) *Use of iterative reconstruction technique DLP: 997 mGy-cm FINDINGS: HEAD: There is no evidence of acute intracranial hemorrhage or territorial infarction. No abnormal mass effect or midline shift is seen. Walker to white matter differentiation is well preserved. No extra-axial fluid collections are identified. Prominence of the ventricles and sulci is redemonstrated consistent with diffuse atrophy. Hypoattenuation of the periventricular white matter is again noted consistent with chronic microvascular ischemic disease. Focal soft tissue hematoma redemonstrated overlying the left frontal calvarium. No calvarial fracture. The mastoid air cells and visualized portions of the paranasal sinuses are well aerated. CERVICAL SPINE: Straightening of the normal cervical lordosis which may be positional or related to muscular spasm. No acute fracture or subluxation. No loss of vertebral body height. Multilevel loss of intervertebral disc height, most prominent at C4 through C7. Prominent multilevel bilateral facet arthropathy. No concerning lytic or blastic osseous lesion. Unremarkable prevertebral soft tissues. No abnormal soft tissue mass or fluid collection. Thyroid again noted to be heterogeneous and enlarged. Visualized lung apices are clear. Multiple bilateral neural foraminal stenosis is unchanged. FACIAL BONES: Redemonstration of a comminuted, mildly displaced left mandibular angle fracture, unchanged when compared to the prior examination. Asymmetric widening of the left temporomandibular joint is redemonstrated with associated osteoarthritis, similar when compared to the prior examination. Nondisplaced fracture versus vascular channel within the right mandible. Correlate for focal tenderness. No new fracture or dislocation. The pterygoid plates are intact. The zygomatic arches are intact. The lamina papyracea are intact. The orbital rims are intact. The paranasal sinuses are well aerated. No air-fluid levels are seen. There is rightward deviation of the nasal septum. The ostiomeatal complexes are clear. The lamina papyracea are intact. The ethmoid roofs are symmetric. The carotid canals are normally covered by bone. There is no maxillary periapical disease. The mastoid air cells and visualized middle ear cavities are well aerated. The orbits are normal. The imaged portions of the brain demonstrate no acute abnormality. ? CT/CT head/brain wo con IMPRESSION: HEAD: No acute intracranial hemorrhage or mass effect. Diffuse atrophy and chronic microvascular ischemic disease is unchanged. Focal soft tissue hematoma redemonstrated overlying the left frontal bone. No adjacent fracture. ? CERVICAL SPINE: No acute fracture or subluxation. Multilevel degenerative disc disease with facet arthropathy and neural foraminal stenosis appears unchanged. ? FACIAL BONES: Unchanged comminuted and slightly displaced fracture through the left mandibular angle. Redemonstration of a nondisplaced fracture versus vascular channel within the right mandible. No new facial bone fracture. Dictated By: Judd Winston MD Signed By: Electronically signed by Judd Winston MD 04/17/22 0927 Chest, abdomen, pelvis CT scan : Attestation: I personally reviewed and interpreted this imaging study as follows: My impression: No acute process. Radiologist's impression: EXAMINATION: CT CHEST, ABDOMEN AND PELVIS WITHOUT CONTRAST CLINICAL INFORMATION: Fall. Facial hematoma. Poor historian. COMPARISON: Chest CT dated 04/14/2022. TECHNIQUE: Contiguous axial thin section helical images of the chest, abdomen and pelvis were performed without IV contrast. The data set was reformatted in the coronal and sagittal planes and reviewed on an independent workstation. This CT examination was performed using dose optimization techniques as appropriate, variously including the following: *Automated exposure control *Adjustment of mA and/or kV according to patient size (this includes techniques or standardized protocols for targeted exams where dose is matched to indication/reason for exam; i.e. extremities or head) *Use of iterative reconstruction technique DLP: 533 mGy-cm FINDINGS: LUNGS: Posterior right upper lobe bronchiectasis with vascular crowding appears unchanged. Associated volume loss is again noted. Right middle lobe bronchiectasis as well as additional scattered areas of right-sided bronchiectasis are noted. Findings are similar when compared to the prior examination. No new pulmonary nodule, mass, or airspace consolidation.? PLEURA: No pleural effusion or pneumothorax. No pleural mass or thickening. MEDIASTINUM: No cardiomegaly. No significant pericardial effusion. No thoracic aortic dilatation. Redemonstration of main pulmonary artery dilatation, unchanged. Findings can be seen in the setting of pulmonary hypertension. Stable subcentimeter superior mediastinal lymph nodes. Redemonstration of a heterogeneously enlarged left thyroid lobe. CHEST WALL/AXILLA: No lymphadenopathy.? LIVER, GALLBLADDER, AND BILIARY TREE: Normal size, shape, and attenuation. No focal hepatic lesion. No intra or extrahepatic biliary ductal dilatation. The gallbladder is mildly distended with tiny layering gallstones. No wall thickening or inflammatory change.? PANCREAS: Unremarkable. SPLEEN: Redemonstration of prominent splenic vascular calcifications. No parenchymal lesion. ADRENAL GLANDS: Unremarkable.? KIDNEYS AND URETERS: Normal size, shape, and attenuation. No hydronephrosis, hydroureter, or calculi. Stable hyperdense subcentimeter right renal cyst. Stable simple left renal cyst. No followup recommended. No perinephric stranding. ? BLADDER: Partially obscured by metallic artifact. Grossly unremarkable. ? GASTROINTESTINAL TRACT: Prominent diverticulosis without evidence of acute diverticulitis. Mild stool burden. No small or large bowel obstruction. The appendix is unremarkable. PERITONEAL CAVITY: No intra-abdominal free air, free fluid, mass, or organized fluid collection. ABDOMINAL WALL: No significant abdominal wall hernia.? LYMPH NODES: No significant lymphadenopathy. VASCULAR: Focal prominence of the infrarenal abdominal aorta measuring up to 2.4 cm in greatest dimension. No followup recommended. Scattered atherosclerotic calcifications. The IVC is unremarkable. PELVIC VISCERA: Support device noted within the pelvis. OSSEOUS STRUCTURES: S-shaped scoliotic curvature of the lumbar spine with prominent multilevel degenerative disc disease. No concerning lytic or blastic osseous lesion. Left hip arthroplasty without evidence of complication. CT/CT abdomen pelvis wo con IMPRESSION: 1. No evidence of acute osseous or visceral injury. ? 2. Redemonstration of pulmonary bronchiectasis without new airspace consolidation. ? 3. Prominence of the main pulmonary artery is unchanged which can be seen in the setting of pulmonary hypertension. ? 4. Mild gallbladder distention with cholelithiasis. No CT evidence of acute cholecystitis. ? 5. No intra-abdominal mass, lymphadenopathy, or ascites. Dictated By: Judd iWnston MD Signed By: Electronically signed by Judd Winston MD 04/17/22 0957 Discharge Plan Discharge Clinical Impression: Hematoma Patient Disposition: Xfer SNF Transfer Details: Back to SNF Instructions: Hematoma (ED) Additional Instructions: HOLD anti-coagulant for 1 day. Follow up with your primary care provider. Return to the emergency department immediately if your symptoms worsen or if you develop any dizziness, shortness of breath, difficulty breathing, chest pain, blurry vision, loss of vision, nausea, vomiting, abdominal pain, fever, chills, back pain, or any other complaints. Prescriptions: No Action amoxicillin-pot clavulanate 875-125 mg tablet 1 tab PO BID 7 Days Qty: 14 0RF chlorhexidine gluconate 4 % liquid 1 appl topical QID Qty: 473 0RF Rx Instructions: Use after meals Print Language: Peruvian
--- NOTE | 2022-04-17 08:46 | PC.NURSE ---
update to daughterFadumo [phone]. States Mother's mentation is baseline.
[2022-04-17 11:09] LABS: MANUAL DIFF FLAG NO
[2022-04-17 11:14] LABS: Basophils Percent Auto 0.2 % (0-2); Hematocrit 29.1 % (37.0-47.0); Hemoglobin 9.1 g/dl (12.0-16.0); Imm Gran Abs Auto 0.05 X10*3/uL (0.00-0.03); Imm Gran Pct Auto 0.5 % (0.0-0.4); Lymphocytes Absolute Auto 0.8 X10*3/uL (1.2-4.9); Lymphocytes Percent Auto 7.4 % (20-40); Mean Corpuscular HGB Conc 31.3 g/dl (31.0-35.0); Mean Corpuscular Hemoglobin 30.1 pg (27.0-33.0); Mean Corpuscular Volume 96.4 fL (80.0-98.0); Mean Platelet Volume 9.5 fL (9.4-12.3); Monocytes Absolute Auto 0.5 X10*3/uL (0.1-1.2); Monocytes Percent Auto 4.4 % (2-11); Neutrophils Absolute Auto 9.7 x10*3/uL (2.0-8.3); Neutrophils Percent Auto 87.5 % (45-73); Platelet Count 373 X10*3/uL (160-400); Red Blood Count 3.02 X10*6/uL (4.20-5.50); Red Cell Distribution Width 14.6 % (11.0-16.0)
[2022-04-17 11:16] LABS: INTERNATIONAL NORM RATIO 1.2 (0.9-1.1); Prothrombin Time 13.5 SEC (9.9-13.0)
[2022-04-17 11:27] LABS: Alanine Aminotransferase 9 U/L (0-31); Albumin Level 3.3 g/dL (3.5-5.0); Alkaline Phosphatase 66 U/L (39-117); Anion Gap 12 (12-20); Aspartate Amino Transferase 12 U/L (5-31); Bilirubin Total 0.5 mg/dL (0.0-1.0); Blood Urea Nitrogen 15 mg/dL (9-16); Calcium 8.5 mg/dL (8.4-10.2); Carbon Dioxide 27 mmol/L (22-29); Chloride 107 mmol/L (96-108); Creatinine Clr Calc Pharmacy 43.4; Estimated Glomerular Filt Rate > 60; Glucose Random 117 mg/dL (60-115); Potassium 4.3 mmol/L (3.3-5.1); Sodium 142 mmol/L (135-145); Total Protein 5.9 g/dL (6.5-8.0)
[2022-04-17 12:43] VITALS: BP 126/44; PULSE 59; RESP 17; O2SAT 95
--- NOTE | 2022-04-17 12:58 | PC.NURSE ---
attempted to call report to [facility], was transferred to the patients unit- 2nd floor and there was no answer to the call.
--- NOTE | 2022-04-17 13:46 | PC.NURSE ---
daughter rosa phone- phone [phone]
--- NOTE | 2022-04-17 13:47 | PC.NURSE ---
daughter rosa to come bulk picker her mother and bring her back to [facility]
--- NOTE | 2022-04-17 15:23 | PC.NURSE ---
family member bringing the patient back to [facility], attempted to call a second time without being able to get ahold of staff. daughter is aware and understands discharge instructions, also understands to have the facility call the ed for report if they wish to have it.
== END 2022-04-17 15:24 | disposition skilled nursing facility (03) ==
PROVIDERS: Physician Assistant Medical; Emergency Provider Emergency Medicine Emergency Medical Services
DX: S00.03XA Contusion of scalp, initial encounter (principal); M54.2 Cervicalgia; M54.6 Pain in thoracic spine; R10.2 Pelvic and perineal pain; X58.XXXA Exposure to other specified factors, initial encounter; Y93.9 Activity, unspecified; Y92.9 Unspecified place or not applicable; Y99.9 Unspecified external cause status; Z79.899 Other long term (current) drug therapy
CPT/HCPCS: 36415; 70450; 70486; 71250; 72125; 74176; 80053; 85025; 85610; 85730; 99284

== ENCOUNTER 2022-04-19 15:34 | Emergency (ER) | payer MEDICARE, MEDICAID, SELFPAY ==
[2022-04-19 15:40] VITALS: BP 111/42; BP 112/67; PULSE 66; PULSE 70; RESP 16; TEMP 36.5; O2SAT 96; BMI 25.1
--- NOTE | 2022-04-19 16:37 | PC.NURSE ---
Spoke with daughter Fadumo and updated her on plan for patient.
--- NOTE | 2022-04-19 16:42 | ED_ITS ---
HPI - Wound/Laceration General Chief Complaint: Wound/Laceration Stated Complaint: Headstrike dizziness Time Seen by Provider: 04/19/22 15:50 Source: patient and EMS Mode of arrival: EMS History of Present Illness HPI narrative: This is an 87-year-old female on Eliquis who is brought in from [facility] as she has picked out a scab /clot that was on her left temporal area that she sustained after a fall for which she was previously evaluated here in this emergency room on Monday. The wound has continued to bleed and she arrives with active bleeding. Related Data Previous Rx's Medication Instructions Recorded amoxicillin 875 mg-potassium 1 tab PO BID 7 days #14 tabs 02/05/22 clavulanate 125 mg tablet chlorhexidine gluconate 4 % 1 appl topical QID #473 mL 02/05/22 topical liquid cephalexin 500 mg capsule 500 mg PO Q12H 3 days #6 caps 04/19/22 Allergies Allergy/AdvReac Type Severity Reaction Status Date / Time celecoxib [From Celebrex] Allergy Unknown Verified 04/19/22 15:39 ciprofloxacin [From Cipro] Allergy Unknown Verified 04/19/22 15:39 rosuvastatin [From Crestor] Allergy Unknown Verified 04/19/22 15:39 Review of Systems Review of Systems: Pertinent positives and negatives as stated in HPI 10 point review of systems is otherwise negative. PMFSH Past Medical History Source: nursing notes reviewed Social History Social History Alcohol intake: never Patient Tobacco Use Status: Never used Tobacco Advance Directives: Yes Advance Directives on File: Yes Advance Directives Date on File: 02/08/22 Physical Exam Vital Signs: Vital Signs: Last Vital Signs Temp 97.7 F 04/19/22 15:40 Pulse 66 04/19/22 15:40 Resp 16 04/19/22 15:40 BP 111/42 L 04/19/22 15:40 Pulse Ox 96 04/19/22 15:40 O2 Del Method 04/19/22 15:40 BMI result Body Mass Index 25.1 VITAL SIGNS: Reviewed. GENERAL: Well developed, well nourished, in no acute distress. HEAD: Normocephalic/ There is a deep indentation where the hematoma was removed from and there is noted pulsatile bleeding that is controlled by the placement of 1 finger. EYES: PERRLA, EOMI EARS: Ext canals without abnormality OROPHARYNX: no oral lesions noted, posterior pharynx clear LUNGS: Normal breath sounds. No adventitious sounds or accessory muscle use. SpO2<96> CARDIOVASCULAR: Regular rate and rhythm without noted murmurs ABDOMEN: Soft, non-tender, non-distended with bowel sounds. NEUROLOGIC: Alert and oriented x 2. Course Course Course Narrative: 87-year-old female with history and clinical presentation consistent with prior fall and had a hematoma and then patient picked at the scab knee began bleeding and the hematoma was removed with active bleeding at this time. Lidocaine 1% with epi was instilled throughout the area and 2 [id number] 4- 0 sutures were placed with pressure applied for proximally 2-3 minutes and then wound was noted to no longer be bleeding. In addition, gauze soaked tranexamic acid was placed over the wound for an additional 5 minutes. All dressings were removed and then 5 sutures were placed with continued hemostasis. Patient aruna ins hemodynamically stable and at baseline mentation. Observation of patient demonstrates that she remains hemodynamically stable with good hemostasis at the site of previous bleeding. She is otherwise stable for discharge. Procedures Laceration Laceration 1: Site: scalp Side (If applicable): left Size (cm): 3 Description: linear and clean Depth: simple, single layer Local Anesthetic: lidocaine 1% and with epi Amount of anesthesia used (mL): 2 Pre-repair: wound explored Skin layer closed with: vicryl Size (cm): 4-0 Number of sutures: 2 Technique: other ( [id number] x2) Subcutaneous layer closed with: vicryl Size: 4-0 Number of sutures: 5 Technique: simple, interrupted Discharge Plan Discharge Clinical Impression: Hematoma, Bleeding, Laceration of skin of scalp Patient Disposition: er [facility] Instructions: Care For Your Stitches (ED), Bleeding Disorders (ED), Hematoma (ED), Head Laceration (ED) Additional Instructions: 1. Resume all home medications as prescribed. 2. You will need to have the 5 sutures removed in 5 days. 3. Follow-up with your primary care provider for re-evaluation in 1-2 days. Return to the ER for worsening symptoms. Prescriptions: New cephalexin 500 mg capsule 500 mg PO Q12H 3 Days Qty: 6 0RF No Action amoxicillin-pot clavulanate 875-125 mg tablet 1 tab PO BID 7 Days Qty: 14 0RF chlorhexidine gluconate 4 % liquid 1 appl topical QID Qty: 473 0RF Rx Instructions: Use after meals Referrals: Russ Moore MD [Primary Care Provider] -
--- NOTE | 2022-04-19 17:51 | PC.NURSE ---
Sproke with [facility] Don she will be sending us an ambulance for the pt within 30-45 mins
== END 2022-04-19 18:48 | disposition skilled nursing facility (03) ==
PROVIDERS: Emergency Provider Student in an Organized Health Care Education/Training Program; PCP Family Medicine
DX: S01.01XA Laceration without foreign body of scalp, initial encounter (principal); W01.10XA Fall on same level from slipping, tripping and stumbling with subsequent striking against unspecified object, initial encounter; Y93.9 Activity, unspecified; Y92.9 Unspecified place or not applicable; Y99.9 Unspecified external cause status
CPT/HCPCS: 12002; 99281; 99283

== ENCOUNTER 2022-04-22 13:07 | Emergency (ER) | payer MEDICARE, MEDICAID, SELFPAY ==
[2022-04-22] VITALS (8 sets, daily range): BP systolic 115–132; BP diastolic 46–70; PULSE 57–75; RESP 14–21; TEMP 36.5–36.7; O2SAT 92–97; BMI 24.1
--- NOTE | ~2022-04-22 | CT_ITS ---
EXAMINATION: CT HEAD WITHOUT CONTRAST CLINICAL INFORMATION: Altered mental status COMPARISON: CT head 04/14/2022 TECHNIQUE: Contiguous axial imaging was performed from the skull base to vertex without intravenous administration of contrast. Coronal and sagittal reformatted images are performed at the CT scanner. [This CT examination was performed using dose optimization techniques as appropriate, variously including the following: *Automated exposure control *Adjustment of mA and/or kV according to patient size (this includes techniques or standardized protocols for targeted exams where dose is matched to indication/reason for exam; i.e. extremities or head) *Use of iterative reconstruction technique] DLP: 4.74+584.16 mGy-cm. FINDINGS: There is no evidence of acute intracranial hemorrhage or territorial infarction. No abnormal mass-effect or midline shift is seen. Walker to white matter differentiation is well preserved. No extra-axial fluid collections are identified. There is generalized global volume loss. There is moderate prominence of the ventricles and the sulci . There is moderate hypodensity of the periventricular white matter due to chronic small vessel ischemic disease. There are vascular calcifications of the internal carotid arteries bilaterally. There is no osseous abnormality. The mastoid air cells and visualized portions of the paranasal sinuses are well-aerated. CT/CT head/brain wo con IMPRESSION: No acute intracranial pathology.
--- NOTE | ~2022-04-22 | CT_ITS ---
EXAMINATION: CT ABDOMEN AND PELVIS WITHOUT CONTRAST CLINICAL INFORMATION: Trauma with low hemoglobin COMPARISON: 04/17/2022 TECHNIQUE: Multidetector volumetric imaging was performed from the superior aspect of the liver through the pubic symphysis. Sagittal and coronal reformatted images were obtained on the technologist's workstation. This CT examination was performed using dose optimization techniques as appropriate, variously including the following: *Automated exposure control *Adjustment of mA and/or kV according to patient size (this includes techniques or standardized protocols for targeted exams where dose is matched to indication/reason for exam; i.e. extremities or head) *Use of iterative reconstruction technique DLP: 330 mGy-cm FINDINGS: LUNG BASES: Stable 7 mm nodule at the right medial lung base LIVER, GALLBLADDER, AND BILIARY TREE: Once again the portal system is prominent within the liver. This is similar to previous. There is also a cystic area which is intimately associated with the second portion of the duodenum but could be pancreatic. This could be focal dilatation of the cystic duct. Outpouching of the cystic duct would be a consideration. Pancreatic head is also seen in this region.. The remainder the pancreas is within normal limits. SPLEEN: Unremarkable. ADRENAL GLANDS: Unremarkable. KIDNEYS AND URETERS: The kidneys are normal in size, shape, and attenuation. No hydronephrosis, hydroureter, or calculi seen. No perinephric stranding. BLADDER: Limited visualization. This is due to the patient's hip replacement. GASTROINTESTINAL TRACT: Moderate to marked colonic stool. The bowel pattern is felt to be nonobstructing. There is no free fluid. ABDOMINAL WALL: No significant hernia is appreciated. LYMPH NODES: Normal. VASCULAR: Atherosclerotic changes. PELVIC VISCERA: Again limited exam from artifact of the hip replacement. Support devices once again seen OSSEOUS STRUCTURES: Degenerative changes. No acute compression injury. No evidence for lesion. CT/CT abdomen pelvis wo con IMPRESSION: Importantly there is no suspicious fluid collection to suggest hematoma. No obvious fracture is identified. The appearance of the abdomen pelvis internally is similar to previous. There is a prominent portal system here and a possibly dilated common duct. A cystic extension of the duct more focal dilatation cannot be excluded versus cystic change associated with the second duodenum or possibly pancreas. Ultrasound is recommended here to further evaluate. Gallstones are noted Stable nodule at the right lung base medially. Attention to follow-up. Recommend low-dose noncontrast follow-up in 6 months Fleischner guidelines were followed.
--- NOTE | 2022-04-22 14:22 | ED.RECABL ---
HPI - Recheck/Abnormal Lab/Rx General Chief Complaint: Recheck/Abnormal Lab/Rx Stated Complaint: ABNORMAL LABS Time Seen by Provider: 04/22/22 14:11 History of Present Illness HPI narrative: Patient is a 87-year-old female with a history of dementia. History of fall. Was seen previously for a fall and head injury on April 17. At that time had multiple CT scans done. Patient presented today because there is a low hemoglobin. There is no physical complaints. [facility]. Did not fall today. Related Data Home Medications Medication Instructions Recorded Confirmed Lactobacillus acidophilus 1 1,000 mmu cells PO BID 04/22/22 04/22/22 billion cell tablet acetaminophen 500 mg tablet 1,000 mg PO BID 04/22/22 04/22/22 amlodipine 10 mg tablet 10 mg PO DAILY 04/22/22 04/22/22 apixaban 2.5 mg tablet (Eliquis) 2.5 mg PO BID 04/22/22 04/22/22 chlorhexidine gluconate 0.12 % 15 ml buccal QIDACHS 04/22/22 04/22/22 mouthwash diclofenac sodium 1 % topical gel 2 g topical QID 04/22/22 04/22/22 diltiazem HCl 180 mg capsule,24 180 mg PO DAILY 04/22/22 04/22/22 hr,extended release divalproex 125 mg capsule,delayed 125 mg PO DAILY@1700 04/22/22 04/22/22 release sprinkle docusate sodium 100 mg capsule 100 mg PO BID 04/22/22 04/22/22 (Colace) donepezil 10 mg tablet (Aricept) 10 mg PO BEDTIME 04/22/22 04/22/22 estradiol (Estrace) 2 g vaginal MOWEFR@1800 04/22/22 04/22/22 melatonin 3 mg tablet 9 mg PO BEDTIME 04/22/22 04/22/22 mesalamine 800 mg tablet,delayed 800 mg PO TID 04/22/22 04/22/22 release metoprolol tartrate 25 mg tablet 12.5 mg PO BID 04/22/22 04/22/22 multivitamin 1 tab PO DAILY 04/22/22 04/22/22 pravastatin 40 mg tablet 40 mg PO BEDTIME 04/22/22 04/22/22 sennosides 8.6 mg tablet (senna) 17.2 mg PO DAILY@1900 04/22/22 04/22/22 sertraline 25 mg tablet (Zoloft) 25 mg PO DAILY 04/22/22 04/22/22 Allergies Allergy/AdvReac Type Severity Reaction Status Date / Time celecoxib [From Celebrex] Allergy Unknown Verified 04/19/22 15:39 ciprofloxacin [From Cipro] Allergy Unknown Verified 04/19/22 15:39 rosuvastatin [From Crestor] Allergy Unknown Verified 04/19/22 15:39 Review of Systems Review of Systems: Unable to obtain review systems secondary to patient's dementia [facility] Past Medical History Attestation statement: The following information was validated with the patient. Social History Social History Alcohol intake: never Patient Tobacco Use Status: Never used Tobacco Advance Directives: Yes Advance Directives on File: Yes Advance Directives Date on File: 02/08/22 Physical Exam Vital Signs: Vital Signs: Last Vital Signs Temp 98.1 F 04/22/22 13:37 Pulse 58 04/22/22 14:26 Resp 16 04/22/22 14:26 BP 115/49 L 04/22/22 14:26 Pulse Ox 94 04/22/22 14:26 O2 Del Method 04/22/22 14:26 BMI result Body Mass Index 24.1 Appearance: Alert. Oriented X3. No acute distress. Positive wound to the left forehead area approximately 2 cm in size it is sutured closed there is no discharge. The wound appears to be intact. No erythema. Well apposed. Eyes: Pupils equal, round and reactive to light. Conjunctiva was pale ENT: Pharynx normal. Mucous membrane appears fair Neck: Normal inspection. Neck supple. No lymph nodes noted. No crepitus CVS: Normal heart rate and rhythm. Pulses normal. Normal S1 and S2 Respiratory: No respiratory distress. Breath sounds normal. No Wheezing. No rales Abdomen: Soft and nontender. No rigidity. No distention. good BS x4 Rectal exam done with nurse Sandy present. There is a large external hemorrhoid. Only mucus noted. Skin: Skin warm and dry. Normal skin color. Normal skin turgor. Extremities: No lower extremity edema. Neurovascular intact to all extremities. No Lacerations. No Rash Neuro: Oriented X 3. No motor deficit. No sensory deficit. Moving all extermities. No slurred speech MDM - Recheck/Abnormal Lab/Rx MDM Narrative Medical decision making narrative: Patient's hemoglobin was 7.4. Rectal exam showed positive hemorrhoid stool was just mucousy. Guaiac was sent. Risk and benefit of transfusion discussed with family. Discussed with daughter Fadumo. Including risk of infection. Risk of human error. States understanding okay with transfusion. Will repeat CT scan of the head and abdomen to ensure that there is no repeat bleed. Patient is to be admitted. Currently in stable condition. Medical Records Attestation: I reviewed the patient's medical records. Lab Data Attestation: I reviewed the patient's lab results. Result diagrams: 04/22/22 15:04 04/22/22 15:05 Labs: Lab Results 04/22/22 04/22/22 04/22/22 Range/Units 15:04 15:05 15:05 WBC 7.7 (4.8-10.8) X10*3/uL RBC 2.44 L (4.20-5.50) X10*6/uL Hgb 7.4 L (12.0-16.0) g/dl Hct 24.2 L (37.0-47.0) % MCV 99.2 H (80.0-98.0) fL MCH 30.3 (27.0-33.0) pg MCHC 30.6 L (31.0-35.0) g/dl RDW 14.8 (11.0-16.0) % Plt Count 348 (160-400) X10*3/uL MPV 9.3 L (9.4-12.3) fL Immature Gran % (Auto) 0.4 (0.0-0.4) % Neut % (Auto) 67.0 (45-73) % Lymph % (Auto) 20.7 (20-40) % Love % (Auto) 9.9 (2-11) % Eos % (Auto) 1.6 (0-4) % Baso % (Auto) 0.4 (0-2) % Lymph # (Auto) 1.6 (1.2-4.9) X10*3/uL Love # (Auto) 0.8 (0.1-1.2) X10*3/uL Eos # (Auto) 0.1 (0.0-0.4) X10*3/uL Baso # (Auto) 0.0 (0.0-0.2) X10*3/uL Abs Immat Gran (auto) 0.03 (0.00-0.03) X10*3/uL Absolute Neuts (auto) 5.2 (2.0-8.3) x10*3/uL Absolute Nucleated RBC 0.000 (0.0-0.012) X10*3/uL Nucleated RBC % (auto) 0.0 (0.0-0.2) /100WBC Sodium 141 (135-145) mmol/L Potassium 4.6 (3.3-5.1) mmol/L Chloride 105 (96-108) mmol/L Carbon Dioxide 29 (22-29) mmol/L Anion Gap 12 (12-20) BUN 14 (9-16) mg/dL Creatinine 0.89 (0.5-1.4) mg/dL Estim Creat Clear Calc 40.0 Estimated GFR 60 Random Glucose 108 (60-115) mg/dL Calcium 8.8 (8.4-10.2) mg/dL COVID-19 (JESSICA) Negative (Negative) COVID-19 Clin Com See Note Blood Type Antibody Screen Crossmatch 04/22/22 Range/Units 15:05 WBC (4.8-10.8) X10*3/uL RBC (4.20-5.50) X10*6/uL Hgb (12.0-16.0) g/dl Hct (37.0-47.0) % MCV (80.0-98.0) fL MCH (27.0-33.0) pg MCHC (31.0-35.0) g/dl RDW (11.0-16.0) % Plt Count (160-400) X10*3/uL MPV (9.4-12.3) fL Immature Gran % (Auto) (0.0-0.4) % Neut % (Auto) (45-73) % Lymph % (Auto) (20-40) % Love % (Auto) (2-11) % Eos % (Auto) (0-4) % Baso % (Auto) (0-2) % Lymph # (Auto) (1.2-4.9) X10*3/uL Love # (Auto) (0.1-1.2) X10*3/uL Eos # (Auto) (0.0-0.4) X10*3/uL Baso # (Auto) (0.0-0.2) X10*3/uL Abs Immat Gran (auto) (0.00-0.03) X10*3/uL Absolute Neuts (auto) (2.0-8.3) x10*3/uL Absolute Nucleated RBC (0.0-0.012) X10*3/uL Nucleated RBC % (auto) (0.0-0.2) /100WBC Sodium (135-145) mmol/L Potassium (3.3-5.1) mmol/L Chloride (96-108) mmol/L Carbon Dioxide (22-29) mmol/L Anion Gap (12-20) BUN (9-16) mg/dL Creatinine (0.5-1.4) mg/dL Estim Creat Clear Calc Estimated GFR Random Glucose (60-115) mg/dL Calcium (8.4-10.2) mg/dL COVID-19 (EJSSICA) (Negative) COVID-19 Clin Com Blood Type O Positive Antibody Screen NEGATIVE Crossmatch See Detail Discharge Plan Discharge Clinical Impression: Anemia Patient Disposition: Admitted As Inpatient Prescriptions: No Action multivitamin Tablet 1 tab PO DAILY sennosides [senna] 8.6 mg Tablet 17.2 mg PO DAILY@1900 Rx Instructions: HOLD FOR LOOSE STOOLS diltiazem HCl 180 mg Capsule,Extended Release 24 Hr 180 mg PO DAILY pravastatin 40 mg Tablet 40 mg PO BEDTIME donepezil [Aricept] 10 mg Tablet 10 mg PO BEDTIME melatonin 3 mg Tablet 9 mg PO BEDTIME acetaminophen [Tylenol Ex Str Rapid Release] 500 mg Tablet 1,000 mg PO BID amlodipine 10 mg Tablet 10 mg PO DAILY docusate sodium [Colace] 100 mg Capsule 100 mg PO BID sertraline [Zoloft] 25 mg Tablet 25 mg PO DAILY estradiol [Estrace] 0.01 % (0.1 mg/gram) Cream 2 g VAGINAL MOWEFR@1800 divalproex 125 mg Capsule, Delayed Rel Sprinkle 125 mg PO DAILY@1700 metoprolol tartrate 25 mg Tablet 12.5 mg PO BID Lactobacillus acidophilus 1 billion cell Tablet 1,000 mmu cells PO BID chlorhexidine gluconate 0.12 % Mouthwash 15 ml BUCCAL QIDACHS Rx Instructions: RINSE AND SPIT diclofenac sodium 1 % Gel 2 g TOPICAL QID Rx Instructions: apply to left knee mesalamine 800 mg Tablet,Delayed Release (Dr/Ec) 800 mg PO TID Rx Instructions: must be taken on empty stomach; no food 1 hr after or 2-3 hrs before dose Eliquis 2.5 mg Tablet 2.5 mg PO BID
--- NOTE | 2022-04-22 15:08 | PHA.MEDREC ---
Pharmacy Consult ? Medication Reconciliation Pharmacy has completed the medication reconciliation. Aleksandra held this morning
[2022-04-22 15:11] LABS: MANUAL DIFF FLAG NO
[2022-04-22 15:14] LABS: Basophils Percent Auto 0.4 % (0-2); Eosinophils Absolute Auto 0.1 X10*3/uL (0.0-0.4); Eosinophils Percent Auto 1.6 % (0-4); Hematocrit 24.2 % (37.0-47.0); Hemoglobin 7.4 g/dl (12.0-16.0); Imm Gran Abs Auto 0.03 X10*3/uL (0.00-0.03); Imm Gran Pct Auto 0.4 % (0.0-0.4); Lymphocytes Absolute Auto 1.6 X10*3/uL (1.2-4.9); Lymphocytes Percent Auto 20.7 % (20-40); Mean Corpuscular HGB Conc 30.6 g/dl (31.0-35.0); Mean Corpuscular Hemoglobin 30.3 pg (27.0-33.0); Mean Corpuscular Volume 99.2 fL (80.0-98.0); Mean Platelet Volume 9.3 fL (9.4-12.3); Monocytes Absolute Auto 0.8 X10*3/uL (0.1-1.2); Monocytes Percent Auto 9.9 % (2-11); Neutrophils Absolute Auto 5.2 x10*3/uL (2.0-8.3); Platelet Count 348 X10*3/uL (160-400); Red Blood Count 2.44 X10*6/uL (4.20-5.50); Red Cell Distribution Width 14.8 % (11.0-16.0); White Blood Count 7.7 X10*3/uL (4.8-10.8)
[2022-04-22 15:33] LABS: Anion Gap 12 (12-20); Blood Urea Nitrogen 14 mg/dL (9-16); COVID-19 Test Negative (Negative); Calcium 8.8 mg/dL (8.4-10.2); Carbon Dioxide 29 mmol/L (22-29); Chloride 105 mmol/L (96-108); Estimated Glomerular Filt Rate 60; Glucose Random 108 mg/dL (60-115); Potassium 4.6 mmol/L (3.3-5.1); Sodium 141 mmol/L (135-145)
--- NOTE | 2022-04-22 22:45 | PC.NURSE ---
Pt tolerating blood transfusion well. No complications. Will continue to monitor.
--- NOTE | 2022-04-26 14:13 | MHC.CM.PN ---
POST DISCHARGE NOTE CALL FROM SHA Castillo OF [facility]. NO DC PACKET WAS SENT WITH PATIENT (ACCORDING TO SHA) AND SHE IS REQUESTING IT BE FAXED TO [phone], NOW FAXED.
== END 2022-04-23 00:52 | disposition home or self-care (01) ==
PROVIDERS: Emergency Provider Emergency Medicine Emergency Medical Services; PCP Internal Medicine
DX: D64.9 Anemia, unspecified (principal); R79.89 Other specified abnormal findings of blood chemistry; F03.90 Unspecified dementia, unspecified severity, without behavioral disturbance, psychotic disturbance, mood disturbance, and anxiety; R41.82 Altered mental status, unspecified; Z20.822 Contact with and (suspected) exposure to COVID-19; Z79.899 Other long term (current) drug therapy
CPT/HCPCS: 36415; 36430; 70450; 74176; 80048; 85025; 86850; 86900; 86901; 86920; 87086; 87635; 99284; P9016

== ENCOUNTER 2022-04-27 03:58 | Emergency (ER) | payer MEDICARE, MEDICAID, SELFPAY ==
[2022-04-27 05:46] LABS: Appearance Urine CLEAR; Color Urine YELLOW; Glucose Urine UA NEG (NEG); Leukocyte Esterase Urine NEG (NEG); Nitrite Urine NEG (NEG); Specific Gravity - Urine <= 1.005 (1.005-1.025); Urine Blood NEG (NEG); Urine Ketones NEG (NEG); Urine Protein NEG (NEG-TRACE)
[2022-04-27 06:03] LABS: Alanine Aminotransferase 7 U/L (0-31); Albumin Level 2.7 g/dL (3.5-5.0); Alkaline Phosphatase 64 U/L (39-117); Anion Gap 10 (12-20); Aspartate Amino Transferase 11 U/L (5-31); Bilirubin Total 0.3 mg/dL (0.0-1.0); Blood Urea Nitrogen 11 mg/dL (9-16); Calcium 6.9 mg/dL (8.4-10.2); Carbon Dioxide 23 mmol/L (22-29); Chloride 114 mmol/L (96-108); Estimated Glomerular Filt Rate > 60; Glucose Random 82 mg/dL (60-115); Potassium 3.6 mmol/L (3.3-5.1); Sodium 143 mmol/L (135-145); Total Protein 4.7 g/dL (6.5-8.0)
[2022-04-27 07:35] VITALS: BP 137/60; PULSE 58; RESP 16; TEMP 36.5; O2SAT 97
== END 2022-04-27 08:00 | disposition skilled nursing facility (03) ==
PROVIDERS: Emergency Provider Emergency Medicine
DX: R09.02 Hypoxemia (principal); F03.90 Unspecified dementia, unspecified severity, without behavioral disturbance, psychotic disturbance, mood disturbance, and anxiety
CPT/HCPCS: 36415; 80053; 81003; 99282; 99283

== ENCOUNTER 2023-03-08 15:50 | Emergency (ER) | payer MEDICARE, MEDICAID, SELFPAY ==
--- NOTE | ~2023-03-08 | CT_ITS ---
EXAMINATION: CT HEAD WITHOUT CONTRAST CLINICAL INFORMATION: Altered mental status. On Eliquis. COMPARISON: None available. TECHNIQUE: Contiguous axial imaging was performed from the skull base to vertex without intravenous administration of contrast. This CT examination was performed using dose optimization techniques as appropriate, variously including the following: *Automated exposure control *Adjustment of mA and/or kV according to patient size (this includes techniques or standardized protocols for targeted exams where dose is matched to indication/reason for exam; i.e. extremities or head) *Use of iterative reconstruction technique DLP: 542 mGy-cm FINDINGS: There is no evidence of acute intracranial hemorrhage or edematous territorial infarction. No abnormal mass effect or midline shift is seen. Walker to white matter differentiation is well preserved. No extra-axial fluid collections are identified. Commensurate prominence of the ventricles and sulci is compatible with generalized parenchymal volume loss. There is periventricular and subcortical white matter hypoattenuation, most likely representing microangiopathic disease. No acute calvarial fracture.. Paranasal sinuses and mastoid air cells are well-aerated. CT/CT head/brain wo IV con IMPRESSION: No CT evidence of acute intracranial hemorrhage or edematous territorial infarction.
[2023-03-08 16:01] VITALS: BP 126/74; PULSE 107; PULSE 67; RESP 18; TEMP 37.2; O2SAT 86; O2SAT 93; BMI 22.4
[2023-03-08 16:05] VITALS: BP 136/64; PULSE 107; RESP 18; TEMP 37.2; O2SAT 94
--- OUTSIDE RECORDS SUMMARY | 2023-03-08 17:10 | XMS_ITS ---
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 996435580 Problem Anemia D64.9 Active [id number] ALLERGIES Substance Reaction Event Type Date Status SEROquel Unknown Drug Allergy Aug, Active Crestor Unknown Drug Allergy Aug, Active Cipro Unknown Drug Allergy Aug, Active CeleBREX Unknown Drug Allergy Aug, Active ENCOUNTERS Encounter Location Date Diagnosis [facility] [address] [place] [phone] Aug, [facility] [address] [place] [phone] Aug, IPMN (intraductal papillary mucinous 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 ; Ulcerative colitis K51.90 and Anemia D64.9 [facility] [address] [place] [phone] Jul, [facility] [address] [place] [phone] May, IMMUNIZATIONS Vaccine Route Administration Date Status Influenza Unknown Aug 30, 2022 Administered SOCIAL HISTORY Qualifiers Date Never Smoker REASON FOR REFERRAL FUNCTIONAL STATUS PLAN OF CARE Activity Details VITAL SIGNS Weight 127 lbs 2022-09-13 Height 65 in 2022-09-13 BMI 21.13 kg/m2 2022-09-13 Temperature 97.1 degrees Fahrenheit Blood pressure systolic 000 mm Hg Blood pressure diastolic 000 mm Hg 2022-08 MEDICATIONS Medication Instructions Dosage Frequency Start Date End Date Duration Status Milk of Magnesia 400 MG/5ML Orally Four times a day 5 mL at least 4 hours between doses as needed 6h Active traMADol HCl 50 MG 26 Active Tylenol Extra Strength 500 MG Orally TWICE A DAY 1 tablet as needed 12h Active Acetaminophen 325 MG Orally every 6 hrs 2 tablet as needed 6h Active Creon [id number] UNIT 30 Active Multivitamin - Orally Once a day 1 tablet 24h 30 day(s) Active Bisacodyl 10 MG/30ML Rectal Once a day 30 mL as needed 24h 30 day(s) Active Divalproex Sodium 125 MG Orally Once a day 1 tablet 24h 30 day(s) Active dilTIAZem HCl ER 180 MG Orally Once a day 1 capsule 24h 30 day(s) Active Simethicone 80 MG Orally Four times a day 1 tablet after meals and at bedtime 6h 30 day(s) Active amLODIPine Besylate 10 MG Orally Once a day 1 tablet 24h 30 day(s) Active Estrace 0.1 MG/GM as directed Active Melatonin 3 MG Orally Once a day 1 tablet at bedtime as needed 24h 30 day(s) Active PROCEDURES Procedure Date Ordered Result Body Site BP SCR NOT PRFRM REC REASON NOS Sep 13, 2022 TOBACCO NON-USER Sep 13, 2022 DOC MEDS VERIFIED W/PT OR RE Sep 13, 2022 RESULTS No Results REASON FOR VISIT Patient presents today for abdominal pain, Patient presents today for abdominal pain, abdominal pain , requesting sooner appt then aug 30 on radiologist call back Insurance Providers Health Insurance Type Health Plan Insurance Address Health Plan Insurance Phone Health Plan Insurance Name Health Plan Coverage Dates Member ID Patient Relationship to Subscriber Patient Address Patient Phone Patient Name Patient Date of Subscriber ID Subscriber Name Subscriber Date of Group No [place] [address] [facility] [id number] [place] roseann CURIEL [id number] [place] [address] [facility] [address] [place] self SHABBIR CURIEL [id number]
--- NOTE | 2023-03-08 17:13 | ED_ITS ---
HPI - Altered Mental Status General Chief Complaint: Altered Mental Status Stated Complaint: PREVIOUSLY UNRESPONSIVE Time Seen by Provider: 03/08/23 16:55 Source: family, EMS and RN notes reviewed Mode of arrival: EMS Limitations: no limitations History of Present Illness HPI narrative: Patient with history of dementia paroxysmal AFib on Eliquis came from senior living as they were unable to wake her up. At 14:30 and patient daughter when to see her , patient was in deep sleep they tried to wake her up with sternal rub but were not able to wake her up for 10 minutes at least after that she woke up with slight confusion back to normal at this time. At that time patient was saturating 86% at room air complaining of chest pain after sternal rub none at this time no witnessed seizures no incontinence no headache no palpitation Related Data Home Medications Medication Instructions Recorded Confirmed Lactobacillus acidophilus 1 1,000 mmu cells PO BID 04/22/22 04/22/22 billion cell tablet acetaminophen 500 mg tablet 1,000 mg PO BID 04/22/22 04/22/22 amlodipine 10 mg tablet 10 mg PO DAILY 04/22/22 04/22/22 apixaban 2.5 mg tablet (Eliquis) 2.5 mg PO BID 04/22/22 04/22/22 chlorhexidine gluconate 0.12 % 15 ml buccal QIDACHS 04/22/22 04/22/22 mouthwash diclofenac sodium 1 % topical gel 2 g topical QID 04/22/22 04/22/22 diltiazem HCl 180 mg capsule,24 180 mg PO DAILY 04/22/22 04/22/22 hr,extended release divalproex 125 mg capsule,delayed 125 mg PO DAILY@1700 04/22/22 04/22/22 release sprinkle docusate sodium 100 mg capsule 100 mg PO BID 04/22/22 04/22/22 (Colace) donepezil 10 mg tablet (Aricept) 10 mg PO BEDTIME 04/22/22 04/22/22 estradiol 0.01% (0.1 mg/gram) 2 g vaginal MOWEFR@1800 04/22/22 04/22/22 vaginal cream (Estrace) melatonin 3 mg tablet 9 mg PO BEDTIME 04/22/22 04/22/22 mesalamine 800 mg tablet,delayed 800 mg PO TID 04/22/22 04/22/22 release metoprolol tartrate 25 mg tablet 12.5 mg PO BID 04/22/22 04/22/22 multivitamin 1 tab PO DAILY 04/22/22 04/22/22 pravastatin 40 mg tablet 40 mg PO BEDTIME 04/22/22 04/22/22 sennosides 8.6 mg tablet (senna) 17.2 mg PO DAILY@1900 04/22/22 04/22/22 sertraline 25 mg tablet (Zoloft) 25 mg PO DAILY 04/22/22 04/22/22 Previous Rx's Medication Instructions Recorded cefuroxime axetil 250 mg tablet 250 mg PO BID 7 days #14 tabs 03/08/23 Allergies Allergy/AdvReac Type Severity Reaction Status Date / Time celecoxib [From Celebrex] Allergy Unknown Verified 04/19/22 15:39 ciprofloxacin [From Cipro] Allergy Unknown Verified 04/19/22 15:39 rosuvastatin [From Crestor] Allergy Unknown Verified 04/19/22 15:39 Review of Systems Review of Systems: Yes all other systems are reviewed and are negative [facility] Social History Social History Alcohol intake: former Patient Tobacco Use Status: Never used Tobacco Smoked in Last 30 Days: No Advance Directives: Yes Advance Directives on File: Yes Advance Directives Date on File: 02/08/22 Physical Exam ED Vital Signs: Vital Signs - 24 hr 03/08/23 16:01 03/08/23 16:05 Temperature 98.9 F 98.9 F Pulse Rate 107 H 107 H Respiratory Rate 18 18 Blood Pressure 136/64 Pulse Oximetry 93 94 Oxygen Delivery Method Room Air Room Air BMI result Body Mass Index 22.4 Appearance: Alert. Oriented X2-3 No acute distress. Eyes: PERRLA, No Nystagmus ENT: Pharynx normal. Oral Mucosa moist Neck: Normal inspection. Neck supple. CVS: Normal heart rate and rhythm. Pulses normal. Respiratory: No respiratory distress. Equal air entry bilateral, no wheezing/rales/rhonchi Abdomen: Soft and nontender. Bowel sounds are present, no mass palpable, no CVA tenderness Skin: Skin warm and dry. Normal skin color. Normal skin turgor. Extremities: No lower extremity edema. No calf tenderness Neuro: Oriented X 2-3. No motor deficit. No sensory deficit.No cerebellar signs , cranial nerves II-XII intact Medications Administered Discontinued Medications Generic Name Dose Route Start Last Admin Trade Name Josee PRN Reason Stop Dose Admin Cefuroxime Axetil 250 mg 03/08/23 18:45 03/08/23 19:21 Cefuroxime Axetil 250 Mg Tablet PO 03/08/23 18:46 250 mg ONCE ONE Administration Medical Decision Making Medical Decision Making [facility] Narrative: Patient with transient decreased responsiveness likely patient was in deep sleep, no witnessed seizures no signs of stroke , patient is on Eliquis will get CT scan of the head vitals are stable at this time Patient's lab showed UTI asymptomatic CT scan of the head negative labs are stable will discharge patient on Ceftin Lab Data [facility] Lab Attestation statement: I reviewed the patient's lab results. 03/08/23 18:11 03/08/23 17:49 Labs: Lab Results 03/08/23 03/08/23 03/08/23 Range/Units 17:11 17:49 17:49 WBC (4.8-10.8) X10*3/uL RBC (4.20-5.50) X10*6/uL Hgb (12.0-16.0) g/dl Hct (37.0-47.0) % MCV (80.0-98.0) fL MCH (27.0-33.0) pg MCHC (31.0-35.0) g/dl RDW (11.0-16.0) % Plt Count (160-400) X10*3/uL MPV (9.4-12.3) fL Immature Gran % (Auto) (0.0-0.4) % Neut % (Auto) (45-73) % Lymph % (Auto) (20-40) % [place] % (Auto) (2-11) % Eos % (Auto) (0-4) % Baso % (Auto) (0-2) % Lymph # (Auto) (1.2-4.9) X10*3/uL [place] # (Auto) (0.1-1.2) X10*3/uL Eos # (Auto) (0.0-0.4) X10*3/uL Baso # (Auto) (0.0-0.2) X10*3/uL Abs Immat Gran (auto) (0.00-0.03) X10*3/uL Absolute Neuts (auto) (2.0-8.3) x10*3/uL Absolute Nucleated RBC (0.0-0.012) X10*3/uL Nucleated RBC % (auto) (0.0-0.2) /100WBC Sodium 144 (135-145) mmol/L Potassium 5.1 D (3.3-5.1) mmol/L Chloride 107 (96-108) mmol/L Carbon Dioxide 29 (22-29) mmol/L Anion Gap 13 (12-20) BUN 14 (9-16) mg/dL Creatinine 0.76 (0.5-1.4) mg/dL Estim Creat Clear Calc 48.8 Estimated GFR > 60 Random Glucose 118 H (60-115) mg/dL Calcium 8.9 D (8.4-10.2) mg/dL Total Bilirubin 0.2 (0.0-1.0) mg/dL AST 27 (5-31) U/L ALT 10 (0-31) U/L Alkaline Phosphatase 82 (39-117) U/L Troponin I High Sens < 2.7 (<3.5-17.0) ng/L Total Protein 6.7 (6.5-8.0) g/dL Albumin 3.1 L (3.5-5.0) g/dL Urine Color Yellow Urine Appearance Cloudy Urine pH 6.5 (5.0-9.0) Ur Specific [place] 1.015 (1.005-1.025) Urine Protein Negative (Neg-Trace) mg/dL Urine Glucose (UA) Negative (Negative) mg/dL Urine Ketones Negative (Negative) mg/dL Urine Blood Negative (Negative) Urine Nitrite Negative (Negative) Ur Leukocyte Esterase Moderate (2+) H (Negative) Urine RBC 3-5 H (0-2) /HPF Urine WBC 11-20 H (0-5) /HPF Ur Squamous Epith Cells >20 (0-2) /HPF Urine Bacteria 4+ (None Seen) Hyaline Casts 0-2 (0-2) /LPF 03/08/23 Range/Units 18:11 WBC 6.5 (4.8-10.8) X10*3/uL RBC 3.95 L D (4.20-5.50) X10*6/uL Hgb 11.7 L D (12.0-16.0) g/dl Hct 36.0 L D (37.0-47.0) % MCV 91.1 (80.0-98.0) fL MCH 29.6 (27.0-33.0) pg MCHC 32.5 (31.0-35.0) g/dl RDW 17.2 H (11.0-16.0) % Plt Count 396 (160-400) X10*3/uL MPV 9.2 L (9.4-12.3) fL Immature Gran % (Auto) 0.3 (0.0-0.4) % Neut % (Auto) 65.7 (45-73) % Lymph % (Auto) 21.0 (20-40) % [place] % (Auto) 10.8 (2-11) % Eos % (Auto) 1.7 (0-4) % Baso % (Auto) 0.5 (0-2) % Lymph # (Auto) 1.4 (1.2-4.9) X10*3/uL [place] # (Auto) 0.7 (0.1-1.2) X10*3/uL Eos # (Auto) 0.1 (0.0-0.4) X10*3/uL Baso # (Auto) 0.0 (0.0-0.2) X10*3/uL Abs Immat Gran (auto) 0.02 (0.00-0.03) X10*3/uL Absolute Neuts (auto) 4.3 (2.0-8.3) x10*3/uL Absolute Nucleated RBC 0.000 (0.0-0.012) X10*3/uL Nucleated RBC % (auto) 0.0 (0.0-0.2) /100WBC Sodium (135-145) mmol/L Potassium (3.3-5.1) mmol/L Chloride (96-108) mmol/L Carbon Dioxide (22-29) mmol/L Anion Gap (12-20) BUN (9-16) mg/dL Creatinine (0.5-1.4) mg/dL Estim Creat Clear Calc Estimated GFR Random Glucose (60-115) mg/dL Calcium (8.4-10.2) mg/dL Total Bilirubin (0.0-1.0) mg/dL AST (5-31) U/L ALT (0-31) U/L Alkaline Phosphatase (39-117) U/L Troponin I High Sens (<3.5-17.0) ng/L Total Protein (6.5-8.0) g/dL Albumin (3.5-5.0) g/dL Urine Color Urine Appearance Urine pH (5.0-9.0) Ur Specific [place] (1.005-1.025) Urine Protein (Neg-Trace) mg/dL Urine Glucose (UA) (Negative) mg/dL Urine Ketones (Negative) mg/dL Urine Blood (Negative) Urine Nitrite (Negative) Ur Leukocyte Esterase (Negative) Urine RBC (0-2) /HPF Urine WBC (0-5) /HPF Ur Squamous Epith Cells (0-2) /HPF Urine Bacteria (None Seen) Hyaline Casts (0-2) /LPF Discharge Plan Discharge Clinical Impression: Altered mental status, Acute UTI Patient Disposition: Home, Self-Care Instructions: Altered Mental Status (ED), Urinary Tract Infection in Older Adults (ED) Additional Instructions: CT scan negative for CVA workup showed mild UTI Take antibiotic as prescribed Prescriptions: New cefuroxime axetil 250 mg tablet 250 mg PO BID 7 Days Qty: 14 0RF No Action multivitamin Tablet 1 tab PO DAILY sennosides [senna] 8.6 mg Tablet 17.2 mg PO DAILY@1900 Rx Instructions: HOLD FOR LOOSE STOOLS diltiazem HCl 180 mg Capsule,Extended Release 24 Hr 180 mg PO DAILY pravastatin 40 mg Tablet 40 mg PO BEDTIME donepezil [Aricept] 10 mg Tablet 10 mg PO BEDTIME melatonin 3 mg Tablet 9 mg PO BEDTIME acetaminophen [Tylenol Ex Str Rapid Release] 500 mg Tablet 1,000 mg PO BID amlodipine 10 mg Tablet 10 mg PO DAILY docusate sodium [Colace] 100 mg Capsule 100 mg PO BID sertraline [Zoloft] 25 mg Tablet 25 mg PO DAILY estradiol [Estrace] 0.01 % (0.1 mg/gram) Cream 2 g VAGINAL MOWEFR@1800 divalproex 125 mg Capsule, Delayed Rel Sprinkle 125 mg PO DAILY@1700 metoprolol tartrate 25 mg Tablet 12.5 mg PO BID Lactobacillus acidophilus 1 billion cell Tablet 1,000 mmu cells PO BID chlorhexidine gluconate 0.12 % Mouthwash 15 ml BUCCAL QIDACHS Rx Instructions: RINSE AND SPIT diclofenac sodium 1 % Gel 2 g TOPICAL QID Rx Instructions: apply to left knee mesalamine 800 mg Tablet,Delayed Release (Dr/Ec) 800 mg PO TID Rx Instructions: must be taken on empty stomach; no food 1 hr after or 2-3 hrs before dose Eliquis 2.5 mg Tablet 2.5 mg PO BID Interventions: ED Discharge Assessment Last Done: 03/08/23 19:24 Discharge Date/Time: 03/08/23 19:26
[2023-03-08 17:22] LABS: Appearance Urine Cloudy; Color Urine Yellow; Glucose Urine UA Negative (Negative); Leukocyte Esterase Urine Moderate (2+) (Negative); Nitrite Urine Negative (Negative); PH 6.5 (5.0-9.0); Specific Gravity - Urine 1.015 (1.005-1.025); UMIC TRIGGER UACC YES; Urine Blood Negative (Negative); Urine Ketones Negative (Negative); Urine Protein Negative (Neg-Trace)
--- NOTE | 2023-03-08 17:30 | ECG_ITS ---
Test Reason : AMS Blood Pressure : / mmHG Vent. Rate : 065 BPM Atrial Rate : 065 BPM P-R Int : 148 ms QRS Dur : 092 ms QT Int : 434 ms P-R-T Axes : 042 044 042 degrees QTc Int : 451 ms Normal sinus rhythm Possible Anterior infarct , age undetermined Abnormal ECG When compared with ECG of 14-APR-2022 10:40, No significant change was found Referred By: Aubrey Balderrama Electronically Signed By:SHAYY SEGUNDO
[2023-03-08 17:45] LABS: Bacteria Urine 4+ (None Seen); Hyaline Casts Urine 0-2 /LPF (0-2); Squamous Epithelial Cell Urine >20 /HPF (0-2); UACC Culture Trigger YES
[2023-03-08 18:14] LABS: MANUAL DIFF FLAG NO
[2023-03-08 18:21] LABS: Alanine Aminotransferase 10 U/L (0-31); Albumin Level 3.1 g/dL (3.5-5.0); Alkaline Phosphatase 82 U/L (39-117); Anion Gap 13 (12-20); Aspartate Amino Transferase 27 U/L (5-31); Bilirubin Total 0.2 mg/dL (0.0-1.0); Blood Urea Nitrogen 14 mg/dL (9-16); Calcium 8.9 mg/dL (8.4-10.2); Carbon Dioxide 29 mmol/L (22-29); Chloride 107 mmol/L (96-108); Creatinine Clr Calc Pharmacy 48.8; Estimated Glomerular Filt Rate > 60; Glucose Random 118 mg/dL (60-115); Potassium 5.1 mmol/L (3.3-5.1); Sodium 144 mmol/L (135-145); Total Protein 6.7 g/dL (6.5-8.0); Troponin-I High Sensitivity < 2.7 ng/L (<3.5-17.0)
--- NOTE | 2023-03-08 18:25 | PC.NURSE ---
Alert with much confusion. Perrla. Denies pain or SOB. Daughter at bedside.
[2023-03-08 18:34] LABS: Basophils Percent Auto 0.5 % (0-2); Eosinophils Absolute Auto 0.1 X10*3/uL (0.0-0.4); Eosinophils Percent Auto 1.7 % (0-4); Hemoglobin 11.7 g/dl (12.0-16.0); Imm Gran Abs Auto 0.02 X10*3/uL (0.00-0.03); Imm Gran Pct Auto 0.3 % (0.0-0.4); Lymphocytes Absolute Auto 1.4 X10*3/uL (1.2-4.9); Mean Corpuscular HGB Conc 32.5 g/dl (31.0-35.0); Mean Corpuscular Hemoglobin 29.6 pg (27.0-33.0); Mean Corpuscular Volume 91.1 fL (80.0-98.0); Mean Platelet Volume 9.2 fL (9.4-12.3); Monocytes Absolute Auto 0.7 X10*3/uL (0.1-1.2); Monocytes Percent Auto 10.8 % (2-11); Neutrophils Absolute Auto 4.3 x10*3/uL (2.0-8.3); Neutrophils Percent Auto 65.7 % (45-73); Platelet Count 396 X10*3/uL (160-400); Red Blood Count 3.95 X10*6/uL (4.20-5.50); Red Cell Distribution Width 17.2 % (11.0-16.0); White Blood Count 6.5 X10*3/uL (4.8-10.8)
== END 2023-03-08 19:26 | disposition home or self-care (01) ==
PROVIDERS: Emergency Provider Internal Medicine
DX: R41.82 Altered mental status, unspecified (principal); N39.0 Urinary tract infection, site not specified; Z79.01 Long term (current) use of anticoagulants; Z79.899 Other long term (current) drug therapy; Z79.02 Long term (current) use of antithrombotics/antiplatelets
CPT/HCPCS: 36415; 70450; 80053; 81001; 84484; 85025; 87086; 93005; 99284

== ENCOUNTER 2023-04-10 14:18 | Emergency (ER) | payer MEDICARE, MEDICAID, SELFPAY ==
--- NOTE | ~2023-04-10 | CT_ITS ---
EXAMINATION: CT CERVICAL SPINE WITHOUT CONTRAST CLINICAL INFORMATION: Fall, trauma, pain COMPARISON: CT had 04/10/2023, CT cervical spine 04/17/2022. CT chest 04/17/2022. TECHNIQUE: Multidetector volumetric CT imaging of the cervical spine is performed without contrast in the axial plane. Additional 2D reformatted coronal and sagittal images are generated on the CT workstation and uploaded to PACS. This CT examination was performed using dose optimization techniques as appropriate, variously including the following: *Automated exposure control *Adjustment of mA and/or kV according to patient size (this includes techniques or standardized protocols for targeted exams where dose is matched to indication/reason for exam; i.e. extremities or head) *Use of iterative reconstruction technique DLP: 193 mGy-cm FINDINGS: There is no acute bony abnormality. The craniocervical junction appears normal. The odontoid appears intact. There is no cervical vertebral compression or fracture line, destructive process, or prevertebral soft tissue swelling. Again, there are degenerative disc changes, greatest at C4-C5, C5-C6, and C6-C7 with disc narrowing and vertebral spurring. No perched facet. There is a borderline spondylolisthesis at C7-T1 similar to prior CT. Lung apices show no pneumothorax. There is no subcutaneous emphysema. Subpleural airspace opacity MM bronchiectasis again noted upper posterior medial right hemithorax. CT/CT cervical spine wo IV con IMPRESSION: - No acute bony abnormality or prevertebral soft tissue swelling. - Multilevel degenerative disc changes. Borderline spondylolisthesis C7-T1 similar to prior CT.
--- NOTE | ~2023-04-10 | CT_ITS ---
EXAMINATION: CT HEAD WITHOUT CONTRAST CLINICAL INFORMATION: Fall, trauma, pain COMPARISON: CT head noncontrast 03/08/2023, 04/22/2022 TECHNIQUE: Contiguous axial imaging was performed from the skull base to vertex without intravenous administration of contrast. Additional 2-D coronal and sagittal reformatted images are generated on the CT workstation and uploaded to PACS. This CT examination was performed using dose optimization techniques as appropriate, variously including the following: *Automated exposure control *Adjustment of mA and/or kV according to patient size (this includes techniques or standardized protocols for targeted exams where dose is matched to indication/reason for exam; i.e. extremities or head) *Use of iterative reconstruction technique DLP: 588 mGy-cm FINDINGS: There is no intracranial hemorrhage, hematoma, or extra-axial fluid collection. There are generalized atrophic changes with mild prominence of the ventricles, cortical sulci, fissures, and cisterns. There is no mass effect or edema. Moderate bilateral periventricular white matter gliosis is again seen with also involvement anterior inferior left temporal lobe as before. The crandall-white matter differentiation appears well preserved . There is no visible acute territorial infarct or mass lesion. The calvarium appears intact. There is no pneumocephalus or orbital emphysema. The visualized sinuses and middle ears and mastoid air cells show no significant mucosal thickening. There are no air-fluid levels. CT/CT head/brain wo IV con IMPRESSION: No acute intracranial abnormality.
[2023-04-10 14:25] VITALS: BP 143/69; BP 150/65; PULSE 80; RESP 18; TEMP 36.8; O2SAT 93; O2SAT 95; BMI 21.6
[2023-04-10 14:30] VITALS: BP 150/65; PULSE 125; RESP 18; TEMP 37; O2SAT 94
--- NOTE | 2023-04-10 14:32 | PC.NURSE ---
Alert with confusion. Per ems report patient lives at [facility] and had a fall from a standing position. Patient unable to recall if she felt dizzy or lightheaded prior to fall. Denies sob or chest pain. Patient with occasional cough- states it just started this morning. C - collar in place at this time, patient reports no pain. laceration noted to back of head. No active bleeding at this time.
--- NOTE | 2023-04-10 15:19 | PC.NURSE ---
Alert but confused, attempting to remove c collar. Up to commode voided large amount of clear yellow urine
--- NOTE | 2023-04-10 15:23 | PC.NURSE ---
Daughter (hcp) rosa updated on current condition. Daughter stating to call her at [phone] if her mother becomes agitated.
--- NOTE | 2023-04-10 16:20 | PC.NURSE ---
Removed c colllar, declining to allow to to be reapplied. Attempting to get out of bed and put clothing back on.
--- NOTE | 2023-04-10 16:57 | ED.FALL ---
HPI - Fall General Chief Complaint: Fall Stated Complaint: FALL W/HEAD LAC,+THINNER,-LOC FROM SNF PER EMS Time Seen by Provider: 04/10/23 16:08 History of Present Illness HPI Narrative: Patient is an 87-year-old female with a history of atrial fibrillation presented from the detention after a fall. Patient unable to recall the exact events that trigger the fall. Positive lack to the scalp. Patient has grossly ambulatory sent in for further evaluation. She has a long history of dementia. Related Data Home Medications Medication Instructions Recorded Confirmed Lactobacillus acidophilus 1 1,000 mmu cells PO BID 04/22/22 04/22/22 billion cell tablet acetaminophen 500 mg tablet 1,000 mg PO BID 04/22/22 04/22/22 amlodipine 10 mg tablet 10 mg PO DAILY 04/22/22 04/22/22 apixaban 2.5 mg tablet (Eliquis) 2.5 mg PO BID 04/22/22 04/22/22 chlorhexidine gluconate 0.12 % 15 ml buccal QIDACHS 04/22/22 04/22/22 mouthwash diclofenac sodium 1 % topical gel 2 g topical QID 04/22/22 04/22/22 diltiazem HCl 180 mg capsule,24 180 mg PO DAILY 04/22/22 04/22/22 hr,extended release divalproex 125 mg capsule,delayed 125 mg PO DAILY@1700 04/22/22 04/22/22 release sprinkle docusate sodium 100 mg capsule 100 mg PO BID 04/22/22 04/22/22 (Colace) donepezil 10 mg tablet (Aricept) 10 mg PO BEDTIME 04/22/22 04/22/22 estradiol 0.01% (0.1 mg/gram) 2 g vaginal MOWEFR@1800 04/22/22 04/22/22 vaginal cream (Estrace) melatonin 3 mg tablet 9 mg PO BEDTIME 04/22/22 04/22/22 mesalamine 800 mg tablet,delayed 800 mg PO TID 04/22/22 04/22/22 release metoprolol tartrate 25 mg tablet 12.5 mg PO BID 04/22/22 04/22/22 multivitamin 1 tab PO DAILY 04/22/22 04/22/22 pravastatin 40 mg tablet 40 mg PO BEDTIME 04/22/22 04/22/22 sennosides 8.6 mg tablet (senna) 17.2 mg PO DAILY@1900 04/22/22 04/22/22 sertraline 25 mg tablet (Zoloft) 25 mg PO DAILY 04/22/22 04/22/22 Previous Rx's Medication Instructions Recorded cefuroxime axetil 250 mg tablet 250 mg PO BID 7 days #14 tabs 03/08/23 Allergies Allergy/AdvReac Type Severity Reaction Status Date / Time celecoxib [From Celebrex] Allergy Unknown Verified 04/19/22 15:39 ciprofloxacin [From Cipro] Allergy Unknown Verified 04/19/22 15:39 rosuvastatin [From Crestor] Allergy Unknown Verified 04/19/22 15:39 Review of Systems Review of Systems: Positive fall. Oriented to self only unable to give details PMFSH Past Medical History Attestation statement: The following information was validated with the patient. Social History Social History Alcohol intake: former Patient Tobacco Use Status: Never used Tobacco Smoked in Last 30 Days: No Use of substances other than those prescribed or required for medical reasons: No Advance Directives: Yes Advance Directives on File: Yes Advance Directives Date on File: 02/08/22 Physical Exam Vital Signs: Vital Signs: Last Vital Signs Temp 98.6 F 04/10/23 14:30 Pulse 125 H 04/10/23 14:30 Resp 18 04/10/23 14:30 BP 150/65 H 04/10/23 14:30 Pulse Ox 94 04/10/23 14:30 O2 Del Method Room Air 04/10/23 14:30 BMI result Body Mass Index 21.6 Appearance: Alert. Oriented X cell phone. No acute distress. Positive laceration to the scalp approximately 3 cm in size, superficial over the occipital area Eyes: Pupils equal, round and reactive to light. ENT: Pharynx normal. Neck: Normal inspection. Neck supple. No lymph nodes noted. No crepitus CVS: Normal heart rate and rhythm. Pulses normal. Normal S1 and S2 Respiratory: No respiratory distress. Breath sounds normal. No Wheezing. No rales Abdomen: Soft and nontender. No rigidity. No distention. good BS x4 Skin: Skin warm and dry. Normal skin color. Normal skin turgor. Extremities: No lower extremity edema. Neurovascular intact to all extremities. No Lacerations. No Rash Neuro: Oriented X self only. No motor deficit. No sensory deficit. Moving all extermities. No slurred speech Procedures Laceration scalp: Site: scalp Size (cm): 4 Description: linear Depth: simple, single layer Pre-repair: wound explored and irrigated extensively Skin layer closed with: other (Staple x3) Medical Decision Making Medical Decision Making [facility] Narrative: Patient's CBC was normal. Electrolytes showed normal kidney function. Patient's urine showed no signs of infection. Has a laceration to the head. It was clean subsequently closed with staple x3. Will discharge patient home head injury precaution. Had a long discussion with patient's daughter feel comfortable taking patient home did not want any further care beyond this point. My interpretation of patient's EKG showed a sinus rhythm heart rate is 70 NM QRS QT within normal limits is no acute ST segment elevation. Differential Diagnosis Differential Diagnoses: The differential diagnosis associated with the presentation includes Lab Data [facility] Lab Attestation statement: I reviewed the patient's lab results. 04/10/23 17:35 04/10/23 17:35 Labs: Lab Results 04/10/23 04/10/23 04/10/23 Range/Units 17:32 17:35 17:35 WBC 10.3 (4.8-10.8) X10*3/uL RBC 4.21 (4.20-5.50) X10*6/uL Hgb 11.8 L (12.0-16.0) g/dl Hct 38.6 (37.0-47.0) % MCV 91.7 (80.0-98.0) fL MCH 28.0 (27.0-33.0) pg MCHC 30.6 L (31.0-35.0) g/dl RDW 15.7 (11.0-16.0) % Plt Count 420 H (160-400) X10*3/uL MPV 8.8 L (9.4-12.3) fL Immature Gran % (Auto) 0.3 (0.0-0.4) % Neut % (Auto) 76.0 H (45-73) % Lymph % (Auto) 14.6 L (20-40) % [place] % (Auto) 8.0 (2-11) % Eos % (Auto) 0.7 (0-4) % Baso % (Auto) 0.4 (0-2) % Lymph # (Auto) 1.5 (1.2-4.9) X10*3/uL [place] # (Auto) 0.8 (0.1-1.2) X10*3/uL Eos # (Auto) 0.1 (0.0-0.4) X10*3/uL Baso # (Auto) 0.0 (0.0-0.2) X10*3/uL Abs Immat Gran (auto) 0.03 (0.00-0.03) X10*3/uL Absolute Neuts (auto) 7.8 (2.0-8.3) x10*3/uL Absolute Nucleated RBC 0.000 (0.0-0.012) X10*3/uL Nucleated RBC % (auto) 0.0 (0.0-0.2) /100WBC Sodium 145 (135-145) mmol/L Potassium 4.4 (3.3-5.1) mmol/L Chloride 107 (96-108) mmol/L Carbon Dioxide 27 (22-29) mmol/L Anion Gap 15 (12-20) BUN 16 (9-16) mg/dL Creatinine 0.88 (0.5-1.4) mg/dL Estim Creat Clear Calc 40.5 Estimated GFR > 60 Random Glucose 109 (60-115) mg/dL Calcium 9.4 (8.4-10.2) mg/dL Urine Color Yellow Urine Appearance Clear Urine pH 6.0 (5.0-9.0) Ur Specific [place] 1.010 (1.005-1.025) Urine Protein Negative (Neg-Trace) mg/dL Urine Glucose (UA) Negative (Negative) mg/dL Urine Ketones Negative (Negative) mg/dL Urine Blood Trace H (Negative) Urine Nitrite Negative (Negative) Ur Leukocyte Esterase Small (1+) H (Negative) Urine RBC 3-5 H (0-2) /HPF Urine WBC 0-5 (0-5) /HPF Ur Squamous Epith Cells 11-20 (0-2) /HPF Urine Bacteria 1+ (None Seen) Hyaline Casts 0-2 (0-2) /LPF Independent Interpretation I performed an independent interpretation of an: EKG Interpretation: Sinus heart rate is 75 NM QRS QT within normal limits is no acute ST segment elevation noted. Independent Historian Clinical information obtained from an independent historian. History obtained from or confirmed by: EMS External Record Review External record reviewed: Inpatient record Discharge Plan Discharge Clinical Impression: Head injury, Laceration of scalp Patient Disposition: Home, Self-Care Instructions: Laceration (DC), Head Injury (ED) Additional Instructions: Staple removal in approximately 5-7 days Prescriptions: No Action multivitamin Tablet 1 tab PO DAILY sennosides [senna] 8.6 mg Tablet 17.2 mg PO DAILY@1900 Rx Instructions: HOLD FOR LOOSE STOOLS diltiazem HCl 180 mg Capsule,Extended Release 24 Hr 180 mg PO DAILY pravastatin 40 mg Tablet 40 mg PO BEDTIME donepezil [Aricept] 10 mg Tablet 10 mg PO BEDTIME melatonin 3 mg Tablet 9 mg PO BEDTIME acetaminophen [Tylenol Ex Str Rapid Release] 500 mg Tablet 1,000 mg PO BID amlodipine 10 mg Tablet 10 mg PO DAILY docusate sodium [Colace] 100 mg Capsule 100 mg PO BID sertraline [Zoloft] 25 mg Tablet 25 mg PO DAILY estradiol [Estrace] 0.01 % (0.1 mg/gram) Cream 2 g VAGINAL MOWEFR@1800 divalproex 125 mg Capsule, Delayed Rel Sprinkle 125 mg PO DAILY@1700 metoprolol tartrate 25 mg Tablet 12.5 mg PO BID Lactobacillus acidophilus 1 billion cell Tablet 1,000 mmu cells PO BID chlorhexidine gluconate 0.12 % Mouthwash 15 ml BUCCAL QIDACHS Rx Instructions: RINSE AND SPIT diclofenac sodium 1 % Gel 2 g TOPICAL QID Rx Instructions: apply to left knee mesalamine 800 mg Tablet,Delayed Release (Dr/Ec) 800 mg PO TID Rx Instructions: must be taken on empty stomach; no food 1 hr after or 2-3 hrs before dose Eliquis 2.5 mg Tablet 2.5 mg PO BID cefuroxime axetil 250 mg tablet 250 mg PO BID 7 Days Qty: 14 0RF Referrals: Physician,Unknown J [Primary Care Provider] - (Follow-up with your doctor for staple removal in 5-7 days. Or you may come back to the emergency department for the kori to be taken out)
--- NOTE | 2023-04-10 16:58 | ECG_ITS ---
Test Reason : FALL Blood Pressure : / mmHG Vent. Rate : 077 BPM Atrial Rate : 077 BPM P-R Int : 148 ms QRS Dur : 090 ms QT Int : 376 ms P-R-T Axes : 055 024 040 degrees QTc Int : 425 ms Normal sinus rhythm Normal ECG When compared with ECG of 08-MAR-2023 17:39, No significant change was found Referred By: Grace Barbosa Electronically Signed By:DIONNA GOODE MD
--- NOTE | 2023-04-10 17:21 | PC.NURSE ---
Patient ambulating on unit, stating she needs to leave. Difficulty to re-direct. Re-directed back to room. Head laceration cleaned. Patient sitting in chair infront of bed at this time. Offered but declined fluids or food at this time.
[2023-04-10 17:40] LABS: MANUAL DIFF FLAG NO
--- NOTE | 2023-04-10 17:40 | PC.NURSE ---
Provider placed 3 kori to head laceration. Patient tolerated well
[2023-04-10 17:41] LABS: Basophils Percent Auto 0.4 % (0-2); Eosinophils Absolute Auto 0.1 X10*3/uL (0.0-0.4); Eosinophils Percent Auto 0.7 % (0-4); Hematocrit 38.6 % (37.0-47.0); Hemoglobin 11.8 g/dl (12.0-16.0); Imm Gran Abs Auto 0.03 X10*3/uL (0.00-0.03); Imm Gran Pct Auto 0.3 % (0.0-0.4); Lymphocytes Absolute Auto 1.5 X10*3/uL (1.2-4.9); Lymphocytes Percent Auto 14.6 % (20-40); Mean Corpuscular HGB Conc 30.6 g/dl (31.0-35.0); Mean Corpuscular Volume 91.7 fL (80.0-98.0); Mean Platelet Volume 8.8 fL (9.4-12.3); Monocytes Absolute Auto 0.8 X10*3/uL (0.1-1.2); Neutrophils Absolute Auto 7.8 x10*3/uL (2.0-8.3); Platelet Count 420 X10*3/uL (160-400); Red Blood Count 4.21 X10*6/uL (4.20-5.50); Red Cell Distribution Width 15.7 % (11.0-16.0); White Blood Count 10.3 X10*3/uL (4.8-10.8)
[2023-04-10 17:47] LABS: Appearance Urine Clear; Color Urine Yellow; Glucose Urine UA Negative (Negative); Leukocyte Esterase Urine Small (1+) (Negative); Nitrite Urine Negative (Negative); UMIC TRIGGER UACC YES; Urine Blood Trace (Negative); Urine Ketones Negative (Negative); Urine Protein Negative (Neg-Trace)
[2023-04-10 17:59] LABS: Bacteria Urine 1+ (None Seen); Hyaline Casts Urine 0-2 /LPF (0-2); UACC Culture Trigger YES; WBC Urine 0-5 /HPF (0-5)
[2023-04-10 18:01] LABS: Anion Gap 15 (12-20); Blood Urea Nitrogen 16 mg/dL (9-16); Calcium 9.4 mg/dL (8.4-10.2); Carbon Dioxide 27 mmol/L (22-29); Chloride 107 mmol/L (96-108); Creatinine Clr Calc Pharmacy 40.5; Estimated Glomerular Filt Rate > 60; Glucose Random 109 mg/dL (60-115); Potassium 4.4 mmol/L (3.3-5.1); Sodium 145 mmol/L (135-145)
--- NOTE | 2023-04-10 18:52 | PC.NURSE ---
Daughter came to [employer] pick[employer] patient to bring back to [facility]. x2 attempts to call report to [facility] unsuccessful. Daughter aware that kori need to be removed in 5-7 days.
== END 2023-04-10 18:53 | disposition home or self-care (01) ==
PROVIDERS: Emergency Provider Emergency Medicine Emergency Medical Services
DX: S01.01XA Laceration without foreign body of scalp, initial encounter (principal); Y09 Assault by unspecified means; Y93.9 Activity, unspecified; Y92.9 Unspecified place or not applicable; I48.91 Unspecified atrial fibrillation; F03.90 Unspecified dementia, unspecified severity, without behavioral disturbance, psychotic disturbance, mood disturbance, and anxiety; Z79.01 Long term (current) use of anticoagulants; Z79.899 Other long term (current) drug therapy
CPT/HCPCS: 12002; 36415; 70450; 72125; 80048; 81001; 85025; 87086; 93005; 99284

== ENCOUNTER 2023-11-16 10:35 | Outpatient (AMB) | payer MEDICARE, MEDICAID, SELFPAY ==
[2023-11-16 10:49] VITALS: BMI 21.6
--- NOTE | 2023-11-16 10:49 | MHC.OFFVIS ---
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 She also has intermittent right knee discomfort. She states that her right knee discomfort is tolerable to her at this time. She describes her left knee pain as sharp in nature. She has had cortisone injections in the past which gave her minimal relief. She has also tried Tylenol and anti-inflammatory medicines which gave her only mild relief. The patient wishes to hold off on surgery for as long as possible. Allergies celecoxib [From Celebrex] Allergy (Verified 04/19/22 15:39) Unknown ciprofloxacin [From Cipro] Allergy (Verified 04/19/22 15:39) Unknown rosuvastatin [From Crestor] Allergy (Verified 04/19/22 15:39) Unknown Medication List - Last Reconciled 11/16/23 by Aj Williamson MD acetaminophen 1,000 mg PO BID amlodipine 10 mg PO DAILY apixaban (Eliquis) 2.5 mg PO BID cefuroxime axetil 250 mg PO BID 7 days chlorhexidine gluconate 0.12% 15 mL buccal QIDACHS diclofenac sodium 1% 2 grams topical QID diltiazem HCl ER 180 mg PO DAILY divalproex 125 mg PO DAILY@1700 docusate sodium (Colace) 100 mg PO BID donepezil (Aricept) 10 mg PO BEDTIME estradiol 0.01%(0.1mg/gram) (Estrace) 2 grams vaginal MOWEFR@1800 Lactobacillus acidophilus 1,000 mmu cells PO BID melatonin 9 mg PO BEDTIME mesalamine 800 mg PO TID metoprolol tartrate 12.5 mg PO BID multivitamin 1 tab PO DAILY pravastatin 40 mg PO BEDTIME sennosides (senna) 17.2 mg PO DAILY@1900 sertraline (Zoloft) 25 mg PO DAILY [facility] Social History Alcohol intake: former Patient Tobacco Use Status: Never used Tobacco Advance Directives Date on File: 02/08/22 Physical Exam Vital Signs: BMI result Body Mass Index 21.6 Const Other: Well-nourished well-developed very friendly female in no acute distress Extrem Other: Left knee examination shows a minimal effusion, palpable crepitus with range of motion, pain with range of motion, range of motion from -3 degrees to 115 degrees, no instability Results Reviewed Results Reviewed: X-rays of the patient's left knee show joint space narrowing, subchondral sclerosis, no acute bony abnormalities Assessment & Plan Assessment & Plan (1) Arthritis of left knee: Code(s): M17.12 - Unilateral primary osteoarthritis, left knee Plan Ms. Edge presents with left knee pain due to degenerative joint disease. I had a lengthy discussion with the patient and her daughter regarding the treatment options. The patient wishes to hold off on surgery for as long as possible. I agree with this plan. She has not gotten good relief from cortisone injections in the past. Thus, I will see whether not her insurance company will cover a viscosupplementation injection for her left knee. I will see her back once the injection is available. Feel free to call me at any time should questions regarding her orthopedic management arise. I spent 20 minutes in reviewing the patient's records and imaging studies, seeing the patient and documenting in the medical record. Orders: Orders XR knee LT 3V Today M25.562 - Pain in left knee Coding Level of Care Code New Pt Level 2 (16888) Diagnoses Arthritis of left knee M17.12
== END 2023-11-16 11:19 | disposition home or self-care (01) ==
PROVIDERS: Visit Provider Orthopaedic Surgery
DX: M17.12 Unilateral primary osteoarthritis, left knee (principal)
CPT/HCPCS: 99202

== ENCOUNTER 2023-11-16 11:59 | Outpatient (REF) | payer MEDICARE, MEDICAID, SELFPAY ==
--- NOTE | ~2023-11-16 | XR_ITS ---
EXAMINATION: XR KNEE, LEFT CLINICAL INFORMATION: Pain. COMPARISON: Radiographs dated 04/14/2022. TECHNIQUE: AP, lateral and sunrise views of the left knee. FINDINGS: Bony mineralization is normal. There is moderately severe asymmetric narrowing of the medial joint space compartment, peripheral osteophyte formation. The lateral joint space compartment is well-maintained. The patellofemoral compartment shows mild lateral narrowing. No fracture, dislocation or significant joint effusion is seen. There is no foreign body. XR/XR knee LT 3V IMPRESSION: 1. There is moderately severe osteoarthritic change of the medial joint space compartment of the left knee, and mild osteoarthritic change is seen of the patellofemoral compartment. 2. No fracture, dislocation or left knee joint effusion is seen.
== END 2023-11-16 12:00 | disposition home or self-care (01) ==
LOC: HO.HOSX 11:59
PROVIDERS: Visit Provider Orthopaedic Surgery
DX: M17.12 Unilateral primary osteoarthritis, left knee (principal); Z79.899 Other long term (current) drug therapy
CPT/HCPCS: 73562; 99202

== ENCOUNTER 2023-11-28 13:34 | Outpatient (AMB) | payer MEDICARE, MEDICAID, SELFPAY ==
[2023-11-28 13:56] VITALS: BMI 21.6
--- NOTE | 2023-11-28 13:56 | MHC.OFFVIS ---
Intake Vital Signs 11/28/23 13:56 Height 5 ft 5 in Weight 130 lb BMI 21.6 Intake Visit Reasons: Left knee Durolane Gel injection Intake Note: Bridgette is a 88 year old female who presents with a caregiver for a Left knee Durolane gel injection. The patient describes her left knee pain as achy in nature. She has done physical therapy exercises which aggravated her pain. She denies any fevers or chills. Allergies celecoxib [From Celebrex] Allergy (Verified 11/28/23 13:57) Unknown ciprofloxacin [From Cipro] Allergy (Verified 11/28/23 13:57) Unknown rosuvastatin [From Crestor] Allergy (Verified 11/28/23 13:57) Unknown Medication List - Last Reconciled 11/28/23 by Aj Williamson MD acetaminophen 1,000 mg PO BID amlodipine 10 mg PO DAILY apixaban (Eliquis) 2.5 mg PO BID cefuroxime axetil 250 mg PO BID 7 days chlorhexidine gluconate 0.12% 15 mL buccal QIDACHS diclofenac sodium 1% 2 grams topical QID diltiazem HCl ER 180 mg PO DAILY divalproex 125 mg PO DAILY@1700 docusate sodium (Colace) 100 mg PO BID donepezil (Aricept) 10 mg PO BEDTIME estradiol 0.01%(0.1mg/gram) (Estrace) 2 grams vaginal MOWEFR@1800 Lactobacillus acidophilus 1,000 mmu cells PO BID melatonin 9 mg PO BEDTIME mesalamine 800 mg PO TID metoprolol tartrate 12.5 mg PO BID multivitamin 1 tab PO DAILY pravastatin 40 mg PO BEDTIME sennosides (senna) 17.2 mg PO DAILY@1900 sertraline (Zoloft) 25 mg PO DAILY [facility] Social History Alcohol intake: former Patient Tobacco Use Status: Never used Tobacco Advance Directives Date on File: 02/08/22 Physical Exam Vital Signs: BMI result Body Mass Index 21.6 Extrem Other: Bilateral lower extremity examination shows good capillary refill, no skin lesions noted, normal sensation light touch Left knee examination shows a minimal effusion, palpable crepitus with range of motion, pain with range of motion, range of motion from -3 degrees to 115 degrees, no instability Office Procedures Joint Injection/Drain Joint Injection/Drain Primary Site: left knee Prep: site was prepped using aseptic technique Injected: 60 mg of (Durolane viscosupplementation) and 1% plain lidocaine Procedure: The patient tolerated the procedure well Coding - Large joint Procedure code (CPT) selection complete Results Reviewed Results Reviewed: X-rays of the patient's left knee show joint space narrowing, subchondral sclerosis, no acute bony abnormalities Assessment & Plan Assessment & Plan (1) Arthritis of left knee: Code(s): M17.12 - Unilateral primary osteoarthritis, left knee Plan Ms. Edge presents with left knee pain due to degenerative joint disease. I had a lengthy discussion patient regarding the treatment options. The risks and benefits of a Durolane viscosupplementation injection were discussed at length with the patient. The patient wished to proceed. She tolerated the injection well she will continue with her home exercise program. She will follow up with me on an as-needed basis should her symptoms not plateau at an unacceptable level over the next few months. I spent 22 minutes in reviewing the patient's records and imaging studies, seeing the patient and documenting in the medical record. Orders: Orders AMB Joint Injection/Aspiration Today M17.12 - Unilateral primary osteoarthritis, left knee Coding Level of Care Code Est Pt Level 2 (09483) Diagnoses Arthritis of left knee M17.12 CPT Codes Coding - Large joint: 11615 - Large joint ([id number])
== END 2023-11-28 14:10 | disposition home or self-care (01) ==
PROVIDERS: Visit Provider Orthopaedic Surgery
DX: M17.12 Unilateral primary osteoarthritis, left knee (principal)
CPT/HCPCS: 20610

== ENCOUNTER → 2023-11-28 13:34 | Outpatient (BNVA) | payer MEDICARE, MEDICAID, SELFPAY | PROVIDERS: Visit Provider Orthopaedic Surgery | DX: M17.12 Unilateral primary osteoarthritis, left knee (principal) | CPT/HCPCS: 20610; J7318 ==

== ENCOUNTER 2024-01-03 13:17 | Outpatient (REF) | payer MEDICARE, MEDICAID, SELFPAY ==
--- NOTE | ~2024-01-03 | XR_ITS ---
EXAMINATION: XR KNEE, RIGHT CLINICAL INFORMATION: Pain in right knee COMPARISON: None available. TECHNIQUE: 3 views of the right knee. FINDINGS: No fracture or joint effusion. There is mild patellar tilt with slight narrowing of the patellofemoral joint space. No abnormal soft tissue calcification. XR/XR knee RT 3V IMPRESSION: Mild patellar tilt with slight narrowing of the patellofemoral joint space.
== END 2024-01-03 13:18 | disposition home or self-care (01) ==
LOC: HO.HOSX 13:17
PROVIDERS: Visit Provider Orthopaedic Surgery
DX: M25.561 Pain in right knee (principal)
CPT/HCPCS: 73562; 99212

== ENCOUNTER 2024-01-03 13:17 | Outpatient (AMB) | payer MEDICARE, MEDICAID, SELFPAY ==
[2024-01-03 13:22] VITALS: BMI 21.6
--- NOTE | 2024-01-03 13:22 | MHC.OFFVIS ---
Intake Vital Signs 01/03/24 13:22 Height 5 ft 5 in Weight 130 lb BMI 21.6 Intake Visit Reasons: New Prpob- right knee pain Intake Note: Jazmyn is a 88 year old female who presents with Right knee pain. Patient reports her pain has been going on for about 3 months and is a 6 on the 1-10 pain scale. She states she had a fall onto her Right knee about 3 months ago. She is taking tylenol and tramadol for the pain. The patient has had cortisone injections in the past which gave her minimal relief. She also had a Durolane viscosupplementation injection given into her left knee approximately 6 weeks ago. She got very good relief from that injection. She denies any left day. Allergies celecoxib [From Celebrex] Allergy (Verified 01/03/24 13:47) Unknown ciprofloxacin [From Cipro] Allergy (Verified 01/03/24 13:47) Unknown rosuvastatin [From Crestor] Allergy (Verified 01/03/24 13:47) Unknown Medication List - Last Reconciled 01/03/24 by Aj Williamson MD acetaminophen 1,000 mg PO BID amlodipine 10 mg PO DAILY apixaban (Eliquis) 2.5 mg PO BID cefuroxime axetil 250 mg PO BID 7 days chlorhexidine gluconate 0.12% 15 mL buccal QIDACHS diclofenac sodium 1% 2 grams topical QID diltiazem HCl ER 180 mg PO DAILY divalproex 125 mg PO DAILY@1700 docusate sodium (Colace) 100 mg PO BID estradiol 0.01%(0.1mg/gram) (Estrace) 2 grams vaginal MOWEFR@1800 Lactobacillus acidophilus 1,000 mmu cells PO BID melatonin 9 mg PO BEDTIME mesalamine 800 mg PO TID metoprolol tartrate 12.5 mg PO BID multivitamin 1 tab PO DAILY pravastatin 40 mg PO BEDTIME sennosides (senna) 17.2 mg PO DAILY@1900 sertraline (Zoloft) 25 mg PO DAILY PFSH Social History Alcohol intake: former Patient Tobacco Use Status: Never used Tobacco Advance Directives Date on File: 02/08/22 Physical Exam Vital Signs: BMI result Body Mass Index 21.6 Extrem Other: Right knee examination shows a minimal effusion, palpable crepitus with range of motion, pain with range of motion, no instability Results Reviewed Results Reviewed: X-rays of the patient's right knee show moderate joint space narrowing, no acute bony abnormalities Assessment & Plan Assessment & Plan (1) Right knee pain: Code(s): M25.561 - Pain in right knee Plan Ms. Edge presents with right knee pain due to degenerative joint disease. I had a lengthy discussion with the patient and her daughter regarding the treatment options. The patient has not gotten good relief from cortisone injections in the past. Thus, I will see whether not the patient's insurance company will cover a viscosupplementation injection for her right knee. I will see her back once the injection is available. The patient will follow-up as instructed. I spent 19 minutes in reviewing the patient's records and imaging studies, seeing the patient and documenting in the medical record. Orders: Orders XR knee RT 3V Today M25.561 - Pain in right knee Coding Level of Care Code Est Pt Level 2 (77426) Diagnoses Right knee pain M25.561
== END 2024-01-03 14:01 | disposition home or self-care (01) ==
PROVIDERS: Visit Provider Orthopaedic Surgery
DX: M17.11 Unilateral primary osteoarthritis, right knee (principal)
CPT/HCPCS: 99213

== ENCOUNTER 2024-02-27 13:28 | Outpatient (AMB) | payer MEDICARE, MEDICAID, SELFPAY ==
[2024-02-27 13:31] VITALS: BMI 21.6
--- NOTE | 2024-02-27 13:31 | MHC.OFFVIS ---
Vital Signs 02/27/24 13:31 Height 5 ft 5 in Weight 130 lb BMI 21.6 Intake Visit Reasons: ov-left knee last Durolane Gel injection Intake Note: Jazmyn, 88 yo female presents today for a follow up of her Right knee pain. The patient describes her pain as sharp in nature. Her pain has gotten worse over the last few months in spite of continued non operative treatments. She has tried Tylenol and anti-inflammatory medicines which gave her minimal relief. She has also done physical therapy which aggravated her pain. She wishes to hold off on surgery for as long as possible. 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 Allergies celecoxib [From Celebrex] Allergy (Verified 02/27/24 13:43) Unknown ciprofloxacin [From Cipro] Allergy (Verified 02/27/24 13:43) Unknown rosuvastatin [From Crestor] Allergy (Verified 02/27/24 13:43) Unknown Medication List - Last Reconciled 02/27/24 by Aj Williamson MD acetaminophen 1,000 mg PO BID amlodipine 10 mg PO DAILY apixaban (Eliquis) 2.5 mg PO BID cefuroxime axetil 250 mg PO BID 7 days chlorhexidine gluconate 0.12% 15 mL buccal QIDACHS diclofenac sodium 1% 2 grams topical QID diltiazem HCl ER 180 mg PO DAILY divalproex 125 mg PO DAILY@1700 docusate sodium (Colace) 100 mg PO BID estradiol 0.01%(0.1mg/gram) (Estrace) 2 grams vaginal MOWEFR@1800 Lactobacillus acidophilus 1,000 mmu cells PO BID melatonin 9 mg PO BEDTIME mesalamine 800 mg PO TID metoprolol tartrate 12.5 mg PO BID multivitamin 1 tab PO DAILY pravastatin 40 mg PO BEDTIME sennosides (senna) 17.2 mg PO DAILY@1900 sertraline (Zoloft) 25 mg PO DAILY [facility] Social History Alcohol intake: former Patient Tobacco Use Status: Never used Tobacco Advance Directives Date on File: 02/08/22 Physical Exam Vital Signs: BMI result Body Mass Index 21.6 Const Other: Well-nourished well-developed very friendly female awake alert and oriented x3 in no acute distress Extrem Other: Bilateral lower extremity examination shows good capillary refill, no skin lesions noted, normal sensation light touch Right knee examination shows a minimal effusion, palpable crepitus with range of motion, pain with range of motion, no instability Office Procedures Joint Injection/Drain Joint Injection/Drain Primary Site: right knee Prep: site was prepped using aseptic technique Injected: 40 mg of, DepoMedrol and 1% plain lidocaine Procedure: The patient tolerated the procedure well Coding - Large joint Procedure code (CPT) selection complete Results Reviewed Results Reviewed: X-rays of the patient's right knee show joint space narrowing, subchondral sclerosis, no acute bony abnormalities Assessment & Plan Assessment & Plan (1) Arthritis of right knee: Code(s): M17.11 - Unilateral primary osteoarthritis, right knee Category: Medical Plan Ms. Edge presents with right knee pain due to degenerative joint disease. I had a lengthy discussion with the patient regarding the treatment options. She wishes to hold off on surgery for as long as possible. I agree with this plan. The risks and benefits of a right knee cortisone injection were discussed at length with the patient. The patient wished to proceed with the injection. She tolerated the injection well. She will continue with her home exercise program. She will follow up with me on an as-needed basis should her symptoms not plateau at an unacceptable level over the next few months. Feel free to call me at any time should questions regarding her orthopedic management arise. I spent 20 minutes in reviewing the patient's records and imaging studies, seeing the patient and documenting in the medical record. Orders: Orders AMB Joint Injection/Aspiration 02/27/24 M17.11 - Unilateral primary osteoarthritis, right knee Coding Level of Care Code Est Pt Level 3 (53097) Diagnoses Arthritis of right knee M17.11 CPT Codes Coding - Large joint: 06369 - Large joint ([id number])
== END 2024-02-27 14:06 | disposition home or self-care (01) ==
PROVIDERS: Visit Provider Orthopaedic Surgery
DX: M17.11 Unilateral primary osteoarthritis, right knee (principal)
CPT/HCPCS: 20610; 99213

== ENCOUNTER → 2024-02-27 13:28 | Outpatient (BNVA) | payer MEDICARE, MEDICAID, SELFPAY | PROVIDERS: Visit Provider Orthopaedic Surgery | DX: M17.11 Unilateral primary osteoarthritis, right knee (principal) | CPT/HCPCS: 20610; 99212; J1010 ==